=== PATIENT | female | born 1965 | race Caucasian/White ===

== ENCOUNTER → 2016-07-22 | Outpatient (CLI) | payer BC ==
--- NOTE | 2016-07-25 08:10 | MM ---
Reason for exam: screening (asymptomatic). Last mammogram was performed 1 year and 8 months ago. History: Patient is postmenopausal. Benign MG stereo VAD BX LT of the left breast, December 09, 2014. Physical Findings: A clinical breast exam by your physician is recommended on an annual basis and results should be correlated with mammographic findings. MG Screening Mammo w CAD Bilateral CC and MLO view(s) were taken. Prior study comparison: November 28, 2014, left breast MG 3d work up w/cad LT. October 03, 2014, bilateral MG screening mammo w CAD. There are scattered fibroglandular densities. Finding: There is a stable, linear, equal density (isodense) mass in the upper outer quadrant of the left breast. Previous mammotome biopsy in the left breast. There is a chronic nodularity in the right breast. No significant changes in finding since November 28, 2014 and October 03, 2014. ASSESSMENT: Benign, BI-RAD 2 RECOMMENDATION: Routine screening mammogram of both breasts in 1 year.
== END | disposition home or self-care (01) ==
LOC: RADMAMWWP 15:06
PROVIDERS: ATTEND Internal Medicine
DX: Z12.31 Encounter for screening mammogram for malignant neoplasm of breast (principal)

== ENCOUNTER 2017-12-07 10:53 | Emergency (ER) | payer OTHER ==
[2017-12-07 11:03] VITALS: TEMP 97.8
[2017-12-07 11:59] LABS: Basophils # (A) 0.1 k/uL (0-0.2); Basophils % (A) 1 %; Eosinophils # (A) 0.1 k/uL (0-0.7); Eosinophils % (A) 1 %; HCT 43.6 % (34.0-46.0); HGB 14.4 gm/dL (11.4-16.0); Lymphocytes # (A) 2.4 k/uL (1.0-4.8); Lymphocytes % (A) 36 %; MCH 30.1 pg (25.0-35.0); MCV 91.1 fL (80.0-100.0); Mean Platelet Volume 6.7; Monocytes # (A) 0.4 k/uL (0-1.0); Monocytes % (A) 6 %; Neutrophils # (A) 3.5 k/uL (1.3-7.7); Neutrophils % (A) 53 %; Platelet Count 264 k/uL (150-450); RBC 4.78 m/uL (3.80-5.40); RDW 12.7 % (11.5-15.5); WBC 6.6 k/uL (3.8-10.6)
--- NOTE | 2017-12-07 12:00 | XR ---
EXAMINATION TYPE: XR chest 2V DATE OF EXAM: 12/07/2017 COMPARISON: NONE HISTORY: Chest pain TECHNIQUE: Frontal and lateral views of the chest are obtained. FINDINGS: There is no focal air space opacity. No evidence for pneumothorax. No pleural effusion. The cardiac silhouette size is within normal limits. The osseous structures are grossly intact. IMPRESSION: 1. No acute cardiopulmonary process.
[2017-12-07 12:09] LABS: INR 0.9 (<1.2); Prothrombin Time 9.4 sec (9.0-12.0)
[2017-12-07 12:20] LABS: ALT 39 U/L (9-52); AST 40 U/L (14-36); Albumin 4.1 g/dL (3.5-5.0); Alkaline Phosphatase 93 U/L (38-126); Anion Gap 6 mmol/L; Blood Urea Nitrogen 16 mg/dL (7-17); Calcium 9.7 mg/dL (8.4-10.2); Carbon Dioxide 25 mmol/L (22-30); Chloride 110 mmol/L (98-107); Glucose 91 mg/dL (74-99); Lipase 166 U/L (23-300); Magnesium 1.9 mg/dL (1.6-2.3); Potassium 4.7 mmol/L (3.5-5.1); Sodium 141 mmol/L (137-145); Total Bilirubin 0.4 mg/dL (0.2-1.3); Total Protein 7.2 g/dL (6.3-8.2)
[2017-12-07 12:22] LABS: Creatine Kinase 61 U/L (30-135)
[2017-12-07 12:34] LABS: Creatine Kinase MB 0.7 ng/mL (0.0-2.4); Troponin I <0.012 ng/mL (0.000-0.034)
--- NOTE | 2017-12-07 13:20 | CT ---
EXAMINATION TYPE: CT angio chest DATE OF EXAM: 12/07/2017 COMPARISON: None HISTORY: Indigestion, chest pressure CT DLP: 268 mGycm CONTRAST: CT chest with contrast and 3D reconstruction with MIP imaging is performed with IV Contrast, patient injected with 100 mL of Isovue 370. Contrast-enhanced CT of the chest was performed through the course of the pulmonary arteries with ivan g and mediastinal window settings submitted. 3D reconstruction with MIP imaging was also performed. PULMONARY ARTERIES: The pulmonary arteries and their major tributaries are patent. I do not see maicol dence for sizable filling defect to suggest pulmonary embolic process. LUNGS: The lungs are clear and free of infiltrate. No evidence for atelectasis. 4 mm pleural based pu lmonary nodule superior segment left lower lobe image 71 of 144. Six-month follow-up is recommended. No pleural effusion. MEDIASTINUM: Thoracic aorta is of normal caliber,however, evaluation is limited given timing of the contrast bolus. If there is concern for thoracic aortic pathology consider SEVEN. Correlate clinicall y . The heart is not enlarged. No evidence for mediastinal mass. No mediastinal lymph nodes greater than 1cm. HILAR STRUCTURES: No evidence for mass. No hilar lymph nodes greater than 1 cm. UPPER ABDOMEN: No significant abnormality is seen. IMPRESSION: 1. No evidence for Pulmonary embolism at this time. 2. 4 mm pleural based pulmonary nodule superior segment left lower lobe image 71 of 144. Six-month f ollow-up is recommended. No pleural effusion.
--- NOTE | 2017-12-07 13:31 | ED ---
Chest Pain HPI - General Chief Complaint: Chest Pain Stated Complaint: r/o heart attack, sent by dr bai Time Seen by Provider: 12/07/17 11:32 Source: patient, RN notes reviewed, old records reviewed Mode of arrival: ambulatory Limitations: no limitations - History of Present Illness Initial Comments: This is a 52-year-old female the ER for evaluation of chest pain. A she has had occasional chest pain for about a week with no resolution in symptoms. Patient states pain is burning in nature with no shortness of breath or radiation. No recent fever cough or congestion recent travel history no sick contacts. Patient denies history of high blood pressure normal cholesterol no diabetes no history of smoking or family history of heart disease MD Complaint: chest pain -: week(s) Onset: during rest, during exertion, after eating Pain Location: left chest Severity: mild Severity scale (1-10): 3 Quality: aching Consistency: intermittent Improves With: nothing Worsens With: nothing Treatments Prior to Arrival: none - Related Data Home Medications Medication Instructions Recorded Confirmed ALPRAZolam [Xanax] 0.25 mg PO DAILY PRN 12/07/17 12/07/17 Omeprazole 20 mg PO BID PRN 12/07/17 12/07/17 Allergies Allergy/AdvReac Type Severity Reaction Status Date / Time Sulfa (Sulfonamide Allergy Unknown Verified 12/07/17 11:32 Antibiotics) Review of Systems ROS Statement: Those systems with pertinent positive or pertinent negative responses have been documented in the HPI. ROS Other: All systems not noted in ROS Statement are negative. EKG Findings - EKG Comments: EKG Findings:: EKG shows sinus rhythm rate of 64, VT 160, QRS 90, QTc 427 Past Medical History Past Medical History: No Reported History History of Any Multi-Drug Resistant Organisms: None Reported Past Surgical History: Tonsillectomy Past Psychological History: Anxiety Smoking Status: Never smoker Past Alcohol Use History: None Reported Past Drug Use History: None Reported General Exam Limitations: no limitations General appearance: alert, in no apparent distress Head exam: Present: atraumatic, normocephalic, normal inspection Eye exam: Present: normal appearance, PERRL, EOMI. Absent: scleral icterus, conjunctival injection, periorbital swelling ENT exam: Present: normal exam, mucous membranes moist Neck exam: Present: normal inspection. Absent: tenderness, meningismus, lymphadenopathy Respiratory exam: Present: normal lung sounds bilaterally. Absent: respiratory distress, wheezes, rales, rhonchi, stridor Cardiovascular Exam: Present: regular rate, normal rhythm, normal heart sounds. Absent: systolic murmur, diastolic murmur, rubs, gallop, clicks GI/Abdominal exam: Present: soft, normal bowel sounds. Absent: distended, tenderness, guarding, rebound, rigid Extremities exam: Present: normal inspection, full ROM, normal capillary refill. Absent: tenderness, pedal edema, joint swelling, calf tenderness Back exam: Present: normal inspection Neurological exam: Present: alert, oriented X3, CN II-XII intact Psychiatric exam: Present: normal affect, normal mood Skin exam: Present: warm, dry, intact, normal color. Absent: rash Course Vital Signs 12/07/17 12/07/17 12/07/17 11:01 11:30 12:00 Temperature 97.8 F Pulse Rate 63 78 Respiratory 16 16 Rate Blood Pressure 129/80 121/81 121/81 O2 Sat by Pulse 100 Oximetry 12/07/17 12/07/17 13:00 14:00 Temperature Pulse Rate 70 Respiratory 14 Rate Blood Pressure 115/75 142/85 O2 Sat by Pulse 96 Oximetry - Reevaluation(s) Reevaluation #1: Patient is without chest pain Studies Chest x-ray CTA chest negative for acute disease Chest Pain MDM - MDM 52 female the ER for evaluation. Patient resents today for evaluation of chest pain no recent history of heart disease CT chest x-ray, EKG and troponin are negative Disposition Clinical Impression: Chest pain Disposition: HOME SELF-CARE Condition: Good Is patient prescribed a controlled substance at d/c from ED?: No Referrals: Rema Bai MD [Primary Care Provider] - 1-2 days
[2017-12-07 14:18] VITALS: BP 142/85; PULSE 70; RESP 14
== END 2017-12-07 14:20 | disposition home or self-care (01) ==
LOC: EC 10:53
DX: R07.9 Chest pain, unspecified (principal); Z88.2 Allergy status to sulfonamides
CPT/HCPCS: 36415; 93005; 80053; 82550; 82553; 83690; 83735; 84484; 85025; 85610; 85730; 71046; 71275; 99285; Q9967

== ENCOUNTER 2019-12-29 22:13 | Inpatient (IN) | payer OTHER ==
[2019-12-29] MEDS ORDERED: FAMOTIDINE 20 MG/2 ML VIAL IV STA (22:43)
[2019-12-29] MEDS ORDERED: ONDANSETRON 4 MG/2 ML VIAL IVP STA (22:43)
[2019-12-29] MEDS ORDERED: MORPHINE SULFATE 4 MG/ML SYRINGE IVP STA (22:43)
[2019-12-29] MEDS ORDERED: SODIUM CHLORIDE 0.9% 500 ML 500 ML IV STA (22:43)
--- NOTE | 2019-12-29 23:30 | XR ---
EXAMINATION TYPE: XR chest 2V DATE OF EXAM: 12/29/2019 COMPARISON: 12/07/2017 HISTORY: Chest pain TECHNIQUE: FINDINGS: There is no heart failure nor confluent pneumonic infiltrate. Costophrenic angles are clear . The bony thorax is intact. Heart size is normal. IMPRESSION: Normal chest. No change.
--- NOTE | 2019-12-29 23:34 | ED ---
General Adult HPI - General Chief complaint: Chest Pain Stated complaint: ABD pain Time Seen by Provider: 12/29/19 22:33 Source: patient Mode of arrival: wheelchair Limitations: no limitations - History of Present Illness Initial comments: 54 year-old female patient presents to the emergency department today for evaluation of midepigastric pain radiating through to the back. Patient states that pain started yesterday and has been occurring intermittently since. Patient states that today the pain has been more constant and she is unable to get it to go away. She states she initially had nausea and one episode of vomiting. Denies any constipation or diarrhea. Denies any shortness of breath or chest pain. He denies any previous abdominal surgeries. Denies a history of cardiac disease, hypertension, hyperlipidemia, or diabetes. Denies any family history of coronary artery disease. Patient states just upon arrival she started to have some sweats but believe this is from the pain. She denies any swelling or pain to her lower extremities. Patient denies any recent rash, fever, chills, cough, abdominal pain, nausea, vomiting, diarrhea, constipation, back pain, numbness, tingling, dizziness, weakness, hematuria, dysuria, urinary urgency, urinary frequency, headache, visual changes, or any other complaints. - Related Data Home Medications Medication Instructions Recorded Confirmed ALPRAZolam [Xanax] 0.25 mg PO DAILY PRN 12/07/17 12/07/17 Omeprazole 20 mg PO BID PRN 12/07/17 12/07/17 Allergies Allergy/AdvReac Type Severity Reaction Status Date / Time Sulfa (Sulfonamide Allergy Unknown Verified 12/29/19 22:32 Antibiotics) Review of Systems ROS Statement: Those systems with pertinent positive or pertinent negative responses have been documented in the HPI. ROS Other: All systems not noted in ROS Statement are negative. Past Medical History Past Medical History: No Reported History History of Any Multi-Drug Resistant Organisms: None Reported Past Surgical History: Tonsillectomy Past Psychological History: Anxiety Smoking Status: Never smoker Past Alcohol Use History: None Reported Past Drug Use History: None Reported General Exam Limitations: no limitations General appearance: alert, in no apparent distress, other (This is a well- developed, well-nourished adult female patient in no acute distress. Vital signs upon presentation are temperature 98.0F, pulse 91, respirations 17, blood pressure 124/86, pulse ox 100% on room air.) Eye exam: Present: normal appearance, PERRL, EOMI. Absent: scleral icterus, conjunctival injection, periorbital swelling ENT exam: Present: normal exam, normal oropharynx, mucous membranes moist Respiratory exam: Present: normal lung sounds bilaterally. Absent: respiratory distress, wheezes, rales, rhonchi, stridor Cardiovascular Exam: Present: regular rate, normal rhythm, normal heart sounds. Absent: systolic murmur, diastolic murmur, rubs, gallop, clicks GI/Abdominal exam: Present: soft, tenderness (midepigastric), normal bowel sounds. Absent: distended, guarding, rebound, rigid Neurological exam: Present: alert, oriented X3, CN II-XII intact Psychiatric exam: Present: normal affect, normal mood Skin exam: Present: warm, dry, intact, normal color. Absent: rash Course Vital Signs 12/29/19 12/30/19 22:30 00:05 Temperature 98 F 98.4 F Pulse Rate 91 76 Respiratory 17 16 Rate Blood Pressure 124/86 110/77 O2 Sat by Pulse 100 99 Oximetry EKG Findings - EKG Comments: EKG Findings:: EKG obtained at 2253 shows normal sinus rhythm with a ventricular rate of 83, P return of a 156, QRS duration 86, QT 374, QTC 439. No evidence of ST elevation or depression. Medical Decision Making - Medical Decision Making 54 old female patient presents to the emergency department today for evaluation of midepigastric abdominal pain radiating to her back. Physical examination did reveal mild midepigastric tenderness. Mild right upper quadrant tenderness. Labs reviewed and did reveal white blood cell count at 12.3 with neutrophil count 8.5. BUN was 21, AST 434, a LT 145, alk phos 155. Lipase is greater than 20,000. Ultrasound of the right upper quadrant was obtained and did show evidence for dilated common bile duct no obvious stone, radiologist recommends ERCP or MRCP. I did discuss findings and results with the patient. We will give IV fluids*antibiotics and consult GI specialty. She is agreeable to this plan. - Lab Data Result diagrams: 12/29/19 22:50 12/29/19 22:50 Lab Results 12/29/19 12/29/19 12/29/19 Range/Units 22:50 22:50 22:50 WBC 12.3 H (3.8-10.6) k/uL RBC 5.01 (3.80-5.40) m/uL Hgb 15.1 (11.4-16.0) gm/dL Hct 44.6 (34.0-46.0) % MCV 89.1 (80.0-100.0) fL MCH 30.1 (25.0-35.0) pg MCHC 33.8 (31.0-37.0) g/dL RDW 12.4 (11.5-15.5) % Plt Count 289 (150-450) k/uL MPV 7.1 Neutrophils % 69 % Lymphocytes % 21 % Monocytes % 6 % Eosinophils % 1 % Basophils % 1 % Neutrophils # 8.5 H (1.3-7.7) k/uL Lymphocytes # 2.6 (1.0-4.8) k/uL Monocytes # 0.8 (0-1.0) k/uL Eosinophils # 0.2 (0-0.7) k/uL Basophils # 0.1 (0-0.2) k/uL PT 9.6 (9.0-12.0) sec INR 0.9 (<1.2) APTT 24.0 (22.0-30.0) sec Sodium 139 (137-145) mmol/L Potassium 4.1 (3.5-5.1) mmol/L Chloride 109 H (98-107) mmol/L Carbon Dioxide 22 (22-30) mmol/L Anion Gap 8 mmol/L BUN 21 H (7-17) mg/dL Creatinine 0.76 (0.52-1.04) mg/dL Est GFR (CKD-EPI)AfAm >90 (>60 ml/min/1.73 sqM) Est GFR (CKD-EPI)NonAf 89 (>60 ml/min/1.73 sqM) Glucose 121 H (74-99) mg/dL Calcium 9.6 (8.4-10.2) mg/dL Magnesium 1.9 (1.6-2.3) mg/dL Total Bilirubin 1.1 (0.2-1.3) mg/dL AST 434 H (14-36) U/L ALT 145 H (4-34) U/L Alkaline Phosphatase 155 H (38-126) U/L Troponin I (0.000-0.034) ng/mL Total Protein 7.6 (6.3-8.2) g/dL Albumin 4.5 (3.5-5.0) g/dL Lipase >54700 H (23-300) U/L 12/29/19 Range/Units 22:50 WBC (3.8-10.6) k/uL RBC (3.80-5.40) m/uL Hgb (11.4-16.0) gm/dL Hct (34.0-46.0) % MCV (80.0-100.0) fL MCH (25.0-35.0) pg MCHC (31.0-37.0) g/dL RDW (11.5-15.5) % Plt Count (150-450) k/uL MPV Neutrophils % % Lymphocytes % % Monocytes % % Eosinophils % % Basophils % % Neutrophils # (1.3-7.7) k/uL Lymphocytes # (1.0-4.8) k/uL Monocytes # (0-1.0) k/uL Eosinophils # (0-0.7) k/uL Basophils # (0-0.2) k/uL PT (9.0-12.0) sec INR (<1.2) APTT (22.0-30.0) sec Sodium (137-145) mmol/L Potassium (3.5-5.1) mmol/L Chloride (98-107) mmol/L Carbon Dioxide (22-30) mmol/L Anion Gap mmol/L BUN (7-17) mg/dL Creatinine (0.52-1.04) mg/dL Est GFR (CKD-EPI)AfAm (>60 ml/min/1.73 sqM) Est GFR (CKD-EPI)NonAf (>60 ml/min/1.73 sqM) Glucose (74-99) mg/dL Calcium (8.4-10.2) mg/dL Magnesium (1.6-2.3) mg/dL Total Bilirubin (0.2-1.3) mg/dL AST (14-36) U/L ALT (4-34) U/L Alkaline Phosphatase (38-126) U/L Troponin I <0.012 (0.000-0.034) ng/mL Total Protein (6.3-8.2) g/dL Albumin (3.5-5.0) g/dL Lipase (23-300) U/L - Radiology Data Radiology results: report reviewed, image reviewed Two-view x-ray of the chest was obtained. Report was reviewed in its entirety. Impression by Dr. Stein shows normal chest. No change. Ultrasound of the right upper quadrant abdomen was obtained. Report was reviewed in its entirety. Impression by Dr. Oropeza shows CBD is dilated to 1 cm. No definite stone is identified. Recommended ERCP/MRCP to rule out obstructive process/choledocholithiasis. Disposition Clinical Impression: Choledocholithiasis Disposition: ADMITTED IP TO THIS [facility] Condition: Serious Decision to Admit Reason: Admit from EC Decision Date: 12/30/19 Decision Time: 02:12
[2019-12-29 23:35] LABS: Basophils # (A) 0.1 k/uL (0-0.2); Basophils % (A) 1 %; Eosinophils # (A) 0.2 k/uL (0-0.7); Eosinophils % (A) 1 %; HCT 44.6 % (34.0-46.0); HGB 15.1 gm/dL (11.4-16.0); Lymphocytes # (A) 2.6 k/uL (1.0-4.8); Lymphocytes % (A) 21 %; MCH 30.1 pg (25.0-35.0); MCHC 33.8 g/dL (31.0-37.0); MCV 89.1 fL (80.0-100.0); Mean Platelet Volume 7.1; Monocytes # (A) 0.8 k/uL (0-1.0); Monocytes % (A) 6 %; Neutrophils # (A) 8.5 k/uL (1.3-7.7); Neutrophils % (A) 69 %; Platelet Count 289 k/uL (150-450); RBC 5.01 m/uL (3.80-5.40); RDW 12.4 % (11.5-15.5); WBC 12.3 k/uL (3.8-10.6)
[2019-12-29 23:51] LABS: INR 0.9 (<1.2); Prothrombin Time 9.6 sec (9.0-12.0)
[2019-12-30 00:06] LABS: ALT 145 U/L (4-34); AST 434 U/L (14-36); African American GFR (CKD) >90 (>60 ml/min/1.73 sqM); Albumin 4.5 g/dL (3.5-5.0); Alkaline Phosphatase 155 U/L (38-126); Anion Gap 8 mmol/L; Blood Urea Nitrogen 21 mg/dL (7-17); Calcium 9.6 mg/dL (8.4-10.2); Carbon Dioxide 22 mmol/L (22-30); Chloride 109 mmol/L (98-107); Glucose 121 mg/dL (74-99); Magnesium 1.9 mg/dL (1.6-2.3); Non-African American GFR(CKD) 89 (>60 ml/min/1.73 sqM); Potassium 4.1 mmol/L (3.5-5.1); Sodium 139 mmol/L (137-145); Total Bilirubin 1.1 mg/dL (0.2-1.3); Total Protein 7.6 g/dL (6.3-8.2)
[2019-12-30] MEDS ORDERED: HYDROmorphone 0.5 MG/0.5 ML SYRINGE IVP STA (00:27)
[2019-12-30 00:49] LABS: Lipase >20000 U/L (23-300)
--- NOTE | 2019-12-30 01:08 | US ---
EXAM: US Abdomen Limited, Right Upper Quadrant CLINICAL HISTORY: ITS.REASON US Reason: Midepigastric pain TECHNIQUE: Real-time ultrasound of the right upper quadrant with image documentation. COMPARISON: No relevant prior studies available. FINDINGS: Liver: Unremarkable. No mass. No intrahepatic bile duct dilation. Gallbladder: No gallstones. No pericholecystic fluid. No gallbladder wall thickening. Negative Chavez's sign. Common bile duct: Dilated to 1 cm. Pancreas: Partially obscured. Right kidney: No stones. No solid mass. No hydronephrosis. IMPRESSION: CBD is dilated to 1 cm. No definite stone is identified. Recommend ERCP/MRCP to rule out obstructive process/choledocholithiasis.
[2019-12-30] MEDS ORDERED: SODIUM CHLORIDE 0.9% 1,000 ML IV ONE (01:33)
[2019-12-30] MEDS ORDERED: SODIUM CHLORIDE 0.9% 500 ML 500 ML IV ONE (01:33)
[2019-12-30] MEDS ORDERED: METOCLOPRAMIDE 5 MG/ML 2 ML VIAL IVP STA (01:42)
[2019-12-30] MEDS ORDERED: diphenhydrAMINE 50 MG/ML 1 ML VIAL IVP STA (01:42)
[2019-12-30] MEDS ORDERED: NALOXONE 0.4 MG/ML 1 ML VIAL IV PRN (01:59)
[2019-12-30] MEDS ORDERED: ONDANSETRON 4 MG/2 ML VIAL IVP PRN (01:59)
[2019-12-30] MEDS ORDERED: HYDROmorphone 0.5 MG/0.5 ML SYRINGE IVP PRN (01:59)
[2019-12-30] MEDS ORDERED: MORPHINE SULFATE 4 MG/ML SYRINGE IV PRN (01:59)
[2019-12-30] MEDS ORDERED: PIPERACILLIN-TAZOBACTAM 3.375 GM in SODIUM CHLORIDE 0.9% 100 ML IVPB SCH (02:00)
[2019-12-30] MEDS ORDERED: PIPERACILLIN-TAZOBACTAM 3.375 GM in SODIUM CHLORIDE 0.9% 100 ML IVPB STA (02:12)
[2019-12-30] MEDS: SODIUM CHLORIDE 0.9% 1,000 ML IV SCH ×4 (02:34→21:18)
[2019-12-30] MEDS: PANTOPRAZOLE 40 MG/10 ML VIAL IV SCH (08:42)
[2019-12-30] MEDS ORDERED: KETOROLAC 15 MG/ML 1 ML VIAL IVP PRN (09:26)
--- NOTE | 2019-12-30 15:01 | P.HPIM ---
History of Present Illness 54-year-old pleasant female came in with the complaints of midepigastric pain severe and radiating to the back. Patient was having nausea vomiting as well. Although symptoms resolved at this time. Patient is found to have gallstone pancreatitis with dilated common bile duct to about 1 cm without any obstructive choledocholithiasis. In the past patient had the pain and pressure in the left and right upper quadrants after eating food. Review of Systems REVIEW OF SYSTEMS: CONSTITUTIONAL: No fever, no malaise, no fatigue. HEENT: No recent visual problems or hearing problems. Denied any sore throat. CARDIOVASCULAR: No chest pain, orthopnea, PND, no palpitations, no syncope. PULMONARY: No shortness of breath, no cough, no hemoptysis. GASTROINTESTINAL: As mentioned in HPI NEUROLOGICAL: No headaches, no weakness, no numbness. HEMATOLOGICAL: Denies any bleeding or petechiae. GENITOURINARY: Denies any burning micturition, frequency, or urgency. MUSCULOSKELETAL/RHEUMATOLOGICAL: Denies any joint pain, swelling, or any muscle pain. ENDOCRINE: Denies any polyuria or polydipsia. The rest of the 14-point review of systems is negative. Past Medical History Past Medical History: No Reported History, GERD/Reflux History of Any Multi-Drug Resistant Organisms: None Reported Past Surgical History: Tonsillectomy Additional Past Surgical History / Comment(s): lasixs surgery on eye 2014 Past Anesthesia/Blood Transfusion Reactions: No Reported Reaction Past Psychological History: Anxiety Smoking Status: Never smoker Past Alcohol Use History: None Reported Past Drug Use History: None Reported - Past Family History Father Family Medical History: COPD, Diabetes Mellitus Mother Family Medical History: COPD Additional Family Medical History / Comment(s): pulmonary fibrosis Medications and Allergies Home Medications Medication Instructions Recorded Confirmed Type ALPRAZolam [Xanax] 0.25 mg PO BID PRN 12/07/17 12/30/19 History Omeprazole 20 mg PO BID PRN 12/07/17 12/30/19 History Cholecalciferol [Vitamin D3 (25 2,000 unit PO DAILY 12/30/19 12/30/19 History Mcg = 1000 Iu)] Mv-Min/Folic/Vit K/Lut/Onwi901 2 tab PO DAILY 12/30/19 12/30/19 History [Alive Women's 50 Plus Tablet] Allergies Allergy/AdvReac Type Severity Reaction Status Date / Time Sulfa (Sulfonamide Allergy Unknown Verified 12/30/19 07:59 Antibiotics) Physical Exam Vitals: Vital Signs Temp Pulse Pulse Resp BP BP Pulse Ox 12/30/19 11:26 97.9 F 100 16 88/58 100 12/30/19 04:48 98.0 F 73 18 101/63 97 12/30/19 03:09 98.4 F 78 18 95/58 97 12/30/19 02:00 98.1 F 84 16 128/85 97 12/30/19 01:00 98.4 F 76 16 119/85 98 12/30/19 00:05 98.4 F 76 16 110/77 99 12/29/19 22:30 98 F 91 17 124/86 100 Intake and Output 12/29/19 12/30/19 12/30/19 22:59 06:59 14:59 Other: # Voids 1 3 Weight 81.647 kg 81.647 kg PHYSICAL EXAMINATION: GENERAL: The patient is alert and oriented x3, not in any acute distress. Well developed, well nourished. HEENT: Pupils are round and equally reacting to light. EOMI. No scleral icterus. No conjunctival pallor. Normocephalic, atraumatic. No pharyngeal erythema. No thyromegaly. CARDIOVASCULAR: S1 and S2 present. No murmurs, rubs, or gallops. PULMONARY: Chest is clear to auscultation, no wheezing or crackles. ABDOMEN: Soft, nontender, nondistended, normoactive bowel sounds. No palpable organomegaly. MUSCULOSKELETAL: No joint swelling or deformity. EXTREMITIES: No cyanosis, clubbing, or pedal edema. NEUROLOGICAL: Gross neurological examination did not reveal any focal deficits. SKIN: No rashes. Results CBC & Chem 7: 12/29/19 22:50 12/29/19 22:50 Labs: Abnormal Lab Results - Last 24 Hours (Table) 12/29/19 12/29/19 Range/Units 22:50 22:50 WBC 12.3 H (3.8-10.6) k/uL Neutrophils # 8.5 H (1.3-7.7) k/uL Chloride 109 H (98-107) mmol/L BUN 21 H (7-17) mg/dL Glucose 121 H (74-99) mg/dL AST 434 H (14-36) U/L ALT 145 H (4-34) U/L Alkaline Phosphatase 155 H (38-126) U/L Lipase >43342 H (23-300) U/L Thrombosis Risk Factor Assmnt - Choose All That Apply Any of the Below Risk Factors Present?: Yes Each Factor Represents 1 point: Age 41-60 years Other Risk Factors: No Other congenital or acquired thrombophilia - If yes, enter type in comment: No Thrombosis Risk Factor Assessment Total Risk Factor Score: 1 Thrombosis Risk Factor Assessment Level: Low Risk Assessment and Plan Plan: -Gallstone pancreatitis: Patient will be nothing by mouth patient's symptoms improved probably can be restarted on clear liquid diet but I'll leave the decision to gastroneurology will evaluate the patient. Continue with present pain medications will also add Toradol for pain along with GI prophylaxis. -Choledocholithiasis and cholelithiasis: General surgery was consulted. Patient may need an MRCP or an ERCP although there is no evidence of obstructed stone in the common bile duct at least on the ultrasound. -Elevated liver enzymes. Assessment #2. Lipid liver enzymes again tomorrow -Leukocytosis secondary to pancreatitis there is no evidence of ascending cholangitis at this time, antibiotics will be discontinued. If gastrin probably police patient will need antibiotics and patient will be resumed on antibiotics at that time. -DVT prophylaxis with Lovenox
--- NOTE | 2019-12-30 16:10 | MR ---
EXAMINATION TYPE: MR MRCP DATE OF EXAM: 12/30/2019 COMPARISON: Ultrasound 12/30/2019 HISTORY: Abdominal pain and abnormal ultrasound Standard multiplanar, multisequence MRI departmental protocol Multiplanar, multisequence images of the upper abdomen and biliary tree were acquired. Diffusion weig hted imaging was performed. FINDINGS: I do not see evidence for cholelithiasis. No gallbladder wall thickening or pericholecystic fluid. No gallbladder mass is identified. Common bile duct measures 8 mm and demonstrates luminal narrowing at the sphincter of Oddi. No evidence for mass or choledocholithiasis. Pancreatic duct is of normal caliber. No pancreatic lesions are seen. The liver is homogeneous and free of mass lesion. No intrahepatic biliary ductal dilatation seen. Adrenal glands, visualized portions of the kidneys and spleen are within normal limits. IMPRESSION: 1. Mild dilatation of the common bile duct at 8 mm with narrowing at the sphincter of Oddi. No eviden ce for choledocholithiasis or mass.
--- NOTE | 2019-12-30 17:10 | CONS ---
CONSULTATION DATE OF DICTATION: REASON FOR CONSULTATION: Acute gallstone pancreatitis. HISTORY OF PRESENT ILLNESS: The patient is a 54-year-old pleasant white female admitted to the hospital with acute onset of severe epigastric pain that started at 3 pm yesterday. The pain continued to progressively get worse associated with nausea, vomiting, came into the emergency room and was noted to have elevated LFTs as well as lipase, more than 20,000, consistent with acute pancreatitis. She never had these symptoms in the past. She is feeling much better this morning. She had an ultrasound of the gallbladder done in the emergency room that showed evidence of no gallstones but dilated CBD measuring 1 cm in size. No pericholecystic fluid noted. The patient is feeling much better this morning abdomen nausea vomiting has completely resolved. PAST MEDICAL HISTORY: Significant for gastroesophageal reflux disease anxiety. MEDICATIONS: At home, Prilosec, Xanax, vitamin D3. ALLERGIES: SULFA. PAST SURGICAL HISTORY: Tonsillectomy. SOCIAL HISTORY: No smoking or alcohol use. FAMILY HISTORY: Unremarkable. REVIEW OF SYSTEMS: CARDIOPULMONARY: No chest pain, no shortness of breath. : No dysuria or hematuria. MUSCULOSKELETAL: Unremarkable. SKIN: Unremarkable. ENDOCRINE: Unremarkable. PSYCHIATRIC: Unremarkable. NEUROLOGY: Unremarkable. ENT/VISION: Unremarkable. CONSTITUTIONAL: No recent weight loss. No fever, chills, night sweats. HEMATOLOGY: Unremarkable. ONCOLOGY: Unremarkable. PHYSICAL EXAMINATION: Appears comfortable. VITAL SIGNS: Stable. Blood pressure 88/58, pulse rate 100, temperature 97.8. HEENT: Examination unremarkable, conjunctivae are pink, sclerae nonicteric, oral cavity no lesions. NECK: No JVD or lymph node enlargement. CHEST: Clear to auscultation. HEART: Regular rate and rhythm. ABDOMEN: Soft, bowel sounds are positive, no organomegaly. EXTREMITIES: No pedal edema. SKIN: No rashes. NEUROLOGIC: Alert and oriented x3. No focal deficits. LABS: At the time of admission to the hospital yesterday WBC 12.3, hemoglobin 15, platelets normal. Basic metabolic panel is within normal limits. AST and ALT at 434 and 145 respectively, alkaline phosphatase 155. T bilirubin normal. Lipase is more than 20,000. Ultrasound of the abdomen showed dilated CBD but no gallstones and no pericholecystic fluid. IMPRESSION: This is a lady who presented with the onset to the hospital with acute onset of severe left epigastric pain associated with nausea, vomiting that started yesterday evening and noted to have elevated lipase consistent with acute pancreatitis. She is also noted to have elevated LFTs consistent with acute biliary pancreatitis. Ultrasound of the gallbladder did not show any evidence of gallstones but did show dilated CBD at 1 cm in size. Patient is clinically improving, overall feeling much better. Abdominal pain has resolved. RECOMMENDATION: 1. Will obtain MRCP to rule out CBD stones. 2. Repeat labs in the morning. 3. Start her on clear liquid diet. 4. Will follow with you closely. 5. Await surgical evaluation. Thank you for this consultation. MMODL / IJN: [id number] /
[2019-12-31] MEDS: SODIUM CHLORIDE 0.9% 1,000 ML IV SCH ×4 (02:30→23:34)
[2019-12-31 07:42] LABS: Basophils % (A) 0 %; Eosinophils # (A) 0.3 k/uL (0-0.7); Eosinophils % (A) 3 %; HCT 37.5 % (34.0-46.0); HGB 12.3 gm/dL (11.4-16.0); Lymphocytes % (A) 19 %; MCH 29.8 pg (25.0-35.0); MCHC 32.8 g/dL (31.0-37.0); MCV 90.9 fL (80.0-100.0); Mean Platelet Volume 7.2; Monocytes # (A) 0.7 k/uL (0-1.0); Monocytes % (A) 7 %; Neutrophils # (A) 7.2 k/uL (1.3-7.7); Neutrophils % (A) 70 %; Platelet Count 217 k/uL (150-450); RBC 4.13 m/uL (3.80-5.40); WBC 10.4 k/uL (3.8-10.6)
[2019-12-31] MEDS: PANTOPRAZOLE 40 MG/10 ML VIAL IV SCH (07:47)
[2019-12-31] MEDS: ENOXAPARIN 40 MG/0.4 ML SYRINGE SQ SCH (07:48)
[2019-12-31 13:02] LABS: African American GFR (CKD) 95.5 (60.0-200.0); Albumin 3.6 g/dL (3.80-4.90); Albumin/Globulin Ratio 1.89 (1.60-3.17); BUN/Creat Ratio 13.75 Ratio (12.00-20.00); Calcium 8.5 mg/dL (8.7-10.3); Globulin 1.9 g/dL (1.6-3.3); Magnesium 1.6 mg/dL (1.5-2.4); Non-African American GFR(CKD) 82.4 (60.0-200.0); Potassium 3.3 mmol/L (3.5-5.5); Total Bilirubin 0.6 mg/dL (0.3-1.2); Total Protein 5.5 g/dL (6.2-8.2)
[2019-12-31] MEDS ORDERED: POTASSIUM CHLORIDE ER 20 MEQ TAB.ER PO STA (13:29)
[2019-12-31] MEDS: MAGNESIUM SULFATE-D5W PMX 1 GM in DEXTROSE/WATER 1 100ML.BAG IVPB SCH ×2 (13:53→17:04)
--- NOTE | 2019-12-31 13:55 | P.PN ---
Subjective Progress Note Date: 12/31/19 54-year-old pleasant female came in with the complaints of midepigastric pain severe and radiating to the back. Patient was having nausea vomiting as well. Although symptoms resolved at this time. Patient is found to have gallstone pancreatitis with dilated common bile duct to about 1 cm without any obstructive choledocholithiasis. In the past patient had the pain and pressure in the left and right upper quadrants after eating food. 12/31/2019 Patient is seen and evaluated and follow-up appears to be in no acute distress. Patient is tolerating a clear liquid diet with no reports of nausea or vomiting noted. Patient denies any epigastric pain at this time. Patient states she is urinating with no difficulties. Patient denies any bowel movements at this time but is passing gas. Patient underwent MRCP yesterday showing mild dilatation of the common bile duct at 8 mm with narrowing of the sphincter of Oddi with no evidence for choledocholelithiasis or mass. GI is following. Patient awaiting surgical consult at this time. She is requesting Dr. Fischer. Review of systems: Constitutional: No reports of fatigue, fever, or chills Cardiovascular: No reports of chest pain or palpitations Respiratory: No reports of shortness of breath or cough GI: No reports of nausea, vomiting, or diarrhea : No reports of dysuria or retention Neurovascular: No reports of weakness or numbness All medications have been reviewed Objective - Vital Signs Vital signs: Vital Signs Temp 98.8 F 12/31/19 08:18 Pulse 81 12/31/19 08:18 Resp 16 12/31/19 04:56 BP 106/64 12/31/19 08:18 Pulse Ox 97 12/31/19 08:18 Intake & Output 12/30/19 12/31/19 12/31/19 18:59 06:59 18:59 Intake Total 1650 Balance 1650 Intake: Intake, IV Titration 1000 Amount Sodium Chloride 0.9% 1, 1000 000 ml @ 200 mls/hr IV . Q5H [facility] Rx#:[id number] Oral 650 Other: # Voids 3 2 # Bowel Movements 0 - Exam GENERAL: The patient is alert and oriented x3, not in any acute distress. Well developed, well nourished. HEENT: Pupils are round and equally reacting to light. EOMI. No scleral icterus. No conjunctival pallor. Normocephalic, atraumatic. No pharyngeal erythema. No thyromegaly. CARDIOVASCULAR: S1 and S2 present. No murmurs, rubs, or gallops. PULMONARY: Chest is clear to auscultation, no wheezing or crackles. ABDOMEN: Soft, nontender, nondistended, normoactive bowel sounds. No palpable organomegaly. MUSCULOSKELETAL: No joint swelling or deformity. EXTREMITIES: No cyanosis, clubbing, or pedal edema. NEUROLOGICAL: Gross neurological examination did not reveal any focal deficits. SKIN: No rashes. - Labs CBC & Chem 7: 12/31/19 07:15 12/31/19 07:15 Assessment and Plan Assessment: -Gallstone pancreatitis, improved. Patient is tolerating clear liquid diet -Choledocholithiasis and cholelithiasis, ruled out: General surgery was consulted and pending at this time. Patient underwent MRCP as mentioned previously. GI is following. -Elevated liver enzymes secondary to above. Improved. -Leukocytosis secondary to pancreatitis there is no evidence of ascending cholangitis at this time, antibiotics will be discontinued. -DVT prophylaxis with Lovenox -GI prophylaxis: Pepcid Plan: Continue current medications and clear liquid diet at this time and will slowly advance to monitor for tolerance. GI is following. Patient underwent MRCP showing no evidence of choledocholithiasis or cholelithiasis with mild dilatation of the common bile duct at 8 mm with a narrowing at the sphincter of Oddi. Currently awaiting surgical consult and GI is following. Will repeat a.m. labs. Further recommendations to follow. Possible discharge in 24-48 hours.
--- NOTE | 2019-12-31 15:26 | P.GSCN ---
History of Present Illness Consult date: 12/31/19 History of present illness: This a 54-year-old female began having abdominal pain midepigastric with vomiting several days ago. She presented to the hospital with this is a chief complaint. She has no significant past surgical or medical history. She's never had pain like this before in the past. She does admit to some intermittent indigestion from time to time. She states her pain is significantly improved at this time. Patient denies any drug or alcohol use. The last time she had a sip of line was over month ago. She has no history of autoimmune disease. She is not currently on any medications. Past Medical History Past Medical History: No Reported History, GERD/Reflux History of Any Multi-Drug Resistant Organisms: None Reported Past Surgical History: Tonsillectomy Additional Past Surgical History / Comment(s): lasixs surgery on eye 2014 Past Anesthesia/Blood Transfusion Reactions: No Reported Reaction Past Psychological History: Anxiety Smoking Status: Never smoker Past Alcohol Use History: None Reported Past Drug Use History: None Reported - Past Family History Father Family Medical History: COPD, Diabetes Mellitus Mother Family Medical History: COPD Additional Family Medical History / Comment(s): pulmonary fibrosis Medications and Allergies Home Medications Medication Instructions Recorded Confirmed Type ALPRAZolam [Xanax] 0.25 mg PO BID PRN 12/07/17 12/30/19 History Omeprazole 20 mg PO BID PRN 12/07/17 12/30/19 History Cholecalciferol [Vitamin D3 (25 2,000 unit PO DAILY 12/30/19 12/30/19 History Mcg = 1000 Iu)] Mv-Min/Folic/Vit K/[id number]/[id number] 2 tab PO DAILY 12/30/19 12/30/19 History [Alive Women's 50 Plus Tablet] Allergies Allergy/AdvReac Type Severity Reaction Status Date / Time Sulfa (Sulfonamide Allergy Unknown Verified 12/30/19 07:59 Antibiotics) Surgical - Exam Osteopathic Statement: *. No significant issues noted on an osteopathic structural exam other than those noted in the History and Physical/Consult. Vital Signs Temp Pulse Resp BP Pulse Ox 98 F 91 17 124/86 100 12/29/19 22:30 12/29/19 22:30 12/29/19 22:30 12/29/19 22:30 11/15/20 22:30 - General well developed, well nourished, no distress - Eyes PERRL - Neck no masses, trachea midline - Respiratory normal expansion, normal respiratory effort - Cardiovascular Rhythm: regular - Abdomen Abdomen: soft, non tender - Psychiatric oriented to time, oriented to person, oriented to place Results - Labs 12/31/19 07:15 12/31/19 07:15 Abnormal Lab Results - Last 24 Hours (Table) 12/31/19 Range/Units 07:15 Potassium 3.3 L (3.5-5.5) mmol/L Chloride 112 H (96-109) mmol/L Carbon Dioxide 21.0 L (21.6-31.8) mmol/L Calcium 8.5 L (8.7-10.3) mg/dL AST 97 H (13-35) U/L ALT 129 H (8-44) U/L Total Protein 5.5 L (6.2-8.2) g/dL Albumin 3.60 L (3.80-4.90) g/dL Amylase 227 H (23-121) U/L Lipase 179 H (14-63) U/L Diabetes panel 12/30/19 12/31/19 Range/Units 13:59 07:15 Sodium 143 (135-145) mmol/L Potassium 3.3 L (3.5-5.5) mmol/L Chloride 112 H (96-109) mmol/L Carbon Dioxide 21.0 L (21.6-31.8) mmol/L BUN 11.0 (9.0-27.0) mg/dL Creatinine 0.8 (0.6-1.5) mg/dL Glucose 91 (70-110) mg/dL Calcium 8.5 L (8.7-10.3) mg/dL AST 97 H (13-35) U/L ALT 129 H (8-44) U/L Alkaline Phosphatase 124 (41-126) U/L Total Protein 5.5 L (6.2-8.2) g/dL Albumin 3.60 L (3.80-4.90) g/dL Triglycerides 64.0 (0.0-149.0) mg/dL Calcium panel 12/31/19 Range/Units 07:15 Calcium 8.5 L (8.7-10.3) mg/dL Albumin 3.60 L (3.80-4.90) g/dL Pituitary panel 12/31/19 Range/Units 07:15 Sodium 143 (135-145) mmol/L Potassium 3.3 L (3.5-5.5) mmol/L Chloride 112 H (96-109) mmol/L Carbon Dioxide 21.0 L (21.6-31.8) mmol/L BUN 11.0 (9.0-27.0) mg/dL Creatinine 0.8 (0.6-1.5) mg/dL Glucose 91 (70-110) mg/dL Calcium 8.5 L (8.7-10.3) mg/dL Adrenal panel 12/31/19 Range/Units 07:15 Sodium 143 (135-145) mmol/L Potassium 3.3 L (3.5-5.5) mmol/L Chloride 112 H (96-109) mmol/L Carbon Dioxide 21.0 L (21.6-31.8) mmol/L BUN 11.0 (9.0-27.0) mg/dL Creatinine 0.8 (0.6-1.5) mg/dL Glucose 91 (70-110) mg/dL Calcium 8.5 L (8.7-10.3) mg/dL Total Bilirubin 0.6 (0.3-1.2) mg/dL AST 97 H (13-35) U/L ALT 129 H (8-44) U/L Alkaline Phosphatase 124 (41-126) U/L Total Protein 5.5 L (6.2-8.2) g/dL Albumin 3.60 L (3.80-4.90) g/dL Assessment and Plan Assessment: Pancreatitis unknown etiology Plan: Patient's pancreatitis appears to be improved today. Neither ultrasound nor MRCP revealed cholelithiasis. MRCP did show luminal narrowing at the sphincter of lamont. Defer to GI for final recommendation regarding this. There is no pancreatic mass seen. No plans for any surgical intervention at this time as there is no confirmed cholelithiasis that can point towards this being a gallstone pancreatitis.
[2020-01-01] MEDS: SODIUM CHLORIDE 0.9% 1,000 ML IV SCH ×3 (02:41→08:46)
[2020-01-01 04:44] VITALS: BP 108/70; PULSE 71; RESP 16; TEMP 97.8
[2020-01-01] MEDS ORDERED: Potassium Replacement Protocol 1 EACH MISC MISCELLANE PRN ×2 (04:50→09:53)
[2020-01-01] MEDS: POTASSIUM CHLORIDE ER 20 MEQ TAB.ER PO SCH (06:24)
--- NOTE | 2020-01-01 07:30 | PN ---
PROGRESS NOTE DATE OF DICTATION: December 31, 2019 Patient is a 54-year-old pleasant white female admitted to hospital with acute pancreatitis. She presented with severe epigastric pain, nausea, vomiting. She is doing much better today. She was noted to have elevated LFTs as well as lipase. This morning, her labs are significantly improved. Lipase is down to 179. ALT and AST have improved to 97 and 129 with normal bilirubin and alkaline phosphatase. The patient had an MRCP done yesterday that showed no evidence of cholelithiasis, no gallbladder wall thickening. Common bile duct measured 8 mm and revealed a luminal narrowing at the sphincter of Oddi. No evidence of choledocholithiasis. Pancreatic duct was normal. No pancreatic duct lesions were noted. PHYSICAL EXAMINATION: She appears comfortable, no apparent distress. Vital signs are stable. Blood pressure is 112/86, pulse rate 82 per minute, temperature 97.8. HEENT EXAMINATION: Unremarkable. Conjunctivae pink. Sclerae anicteric. Oral cavity, no lesions. NECK: No JVD or lymph node enlargement. CHEST: Clear to auscultation. HEART: Regular rate and rhythm. ABDOMEN: Soft. Bowel sounds are positive. No organomegaly. EXTREMITIES: No pedal edema. NEURO: She is alert and oriented x3. No focal deficits. LABS: Labs from today: Lipase is 179, amylase 227. AST and ALT 97 and 129 respectively. T- bilirubin and alkaline phosphatase are normal. The potassium is 3.3. WBC 10.4, hemoglobin 12.3, platelets 217. IMPRESSION: Acute biliary pancreatitis, symptoms significantly improved. Lipase down to 179 from 20,000. Serum transaminases have also significantly improved. The patient is asymptomatic on a clear liquid diet, tolerating well. MRCP results reviewed with the patient which revealed a slightly dilated CBD measuring 8 mm with relative tapering in the distal common bile duct at the sphincter of Oddi. However, there were no gallstones or CBD stones noted. Pancreas appeared normal. At this time, the clinical and biochemical presentation are very consistent with acute gallstone pancreatitis, but surprisingly, all imaging studies did not show any evidence of gallstones. MRCP did not show any evidence of CBD stones and her serum transaminases are significantly improving with normal bilirubin and alkaline phosphatase and hence there is no indication for an ERCP at the present time. MRCP also showed some tapering at the sphincter of Oddi, which I am not sure at this time is clinically relevant with normal bilirubin and alkaline phosphatase. RECOMMENDATIONS: 1. Advance diet as tolerated. 2. Repeat labs in the morning. 3. If they continue to improve, no need for an ERCP at the present time. 4. We will follow with you closely. Thank you for this consultation. ANAND / BLU: [id number] /
[2020-01-01] MEDS: ENOXAPARIN 40 MG/0.4 ML SYRINGE SQ SCH (08:45)
[2020-01-01] MEDS: PANTOPRAZOLE 40 MG/10 ML VIAL IV SCH (08:45)
[2020-01-01 09:16] LABS: ALT 112 U/L (4-34); AST 82 U/L (14-36); African American GFR (CKD) >90 (>60 ml/min/1.73 sqM); Albumin 3.7 g/dL (3.5-5.0); Albumin/Globulin Ratio 1.3; Alkaline Phosphatase 123 U/L (38-126); Anion Gap 5 mmol/L; Blood Urea Nitrogen 8 mg/dL (7-17); Calcium 8.9 mg/dL (8.4-10.2); Carbon Dioxide 23 mmol/L (22-30); Chloride 111 mmol/L (98-107); Globulin 2.8 g/dL; Glucose 119 mg/dL (74-99); Non-African American GFR(CKD) >90 (>60 ml/min/1.73 sqM); Potassium 3.6 mmol/L (3.5-5.1); Sodium 139 mmol/L (137-145); Total Bilirubin 0.6 mg/dL (0.2-1.3); Total Protein 6.5 g/dL (6.3-8.2)
[2020-01-01] MEDS ORDERED: POTASSIUM CHLORIDE ER 20 MEQ TAB.ER PO SCH (10:00)
--- NOTE | 2020-01-01 11:55 | P.PN ---
Subjective Progress Note Date: 01/01/20 Principal diagnosis: Abdominal pain, pancreatitis A pleasant 54-year-old female who was admitted to the hospital with acute pancreatitis. She reports she is doing much better today, denies any abdominal pain, nausea, or vomiting. She is tolerating her diet. Liver enzymes continued to improve, total bilirubin 0.6, alkaline phosphatase 123, AST 82, ALT 112. Plans are for discharge home today. Objective - Vital Signs Vital signs: Vital Signs Temp 97.8 F 01/01/20 04:35 Pulse 71 01/01/20 04:35 Resp 16 01/01/20 04:35 BP 108/70 01/01/20 04:35 Pulse Ox 95 01/01/20 04:35 Intake & Output 12/31/19 01/01/20 01/01/20 18:59 06:59 18:59 Intake Total 900 Balance 900 Intake: Intake, IV Titration 500 Amount Magnesium Sulfate-D5w Pmx 100 1 gm In Dextrose/Water 1 100ml.bag @ 100 mls/hr IVPB Q1H [facility] Rx#: [id number] Sodium Chloride 0.9% 1, 400 000 ml @ 200 mls/hr IV . Q5H [facility] Rx#:[id number] Oral 400 Other: # Voids 2 2 # Bowel Movements 0 - Exam General appearance: The patient is alert, oriented, in no acute distress. HET: Head is normocephalic and atraumatic. Conjunctiva pink. Sclera anicteric. Neck: Supple without lymphadenopathy. Abdomen: Soft, nontender, nondistended with bowel sounds. No guarding or rigidity. Extremities: Normal skin color and turgor. No pedal edema Neurological: No focal deficits. Alert and oriented 3. - Labs CBC & Chem 7: 12/31/19 07:15 01/01/20 08:36 Labs: Abnormal Lab Results - Last 24 Hours (Table) 12/31/19 12/31/19 01/01/20 Range/Units 07:15 20:36 08:36 Potassium 3.3 L 3.4 L (3.5-5.5) mmol/L Chloride 112 H 111 H (96-109) mmol/L Carbon Dioxide 21.0 L (21.6-31.8) mmol/L Glucose 119 H (74-99) mg/dL Calcium 8.5 L (8.7-10.3) mg/dL AST 97 H 82 H (13-35) U/L ALT 129 H 112 H (8-44) U/L Total Protein 5.5 L (6.2-8.2) g/dL Albumin 3.60 L (3.80-4.90) g/dL Amylase 227 H (23-121) U/L Lipase 179 H (14-63) U/L Assessment and Plan Assessment: Acute biliary pancreatitis with significant improvement in symptoms. Lipase down to 179 from 20,000. Serum transaminases have significantly improved. She is tolerating a full liquid diet. MRCP revealed a slightly dilated common bile duct measuring 8 mm with relative tapering in the distal common bile duct at the sphincter of OD, however there were no gallstones or CBD stones noted. Pancreas appeared normal. At this time there is no indication for an ERCP. Plan: 1. Advance diet as tolerated 2. Repeat labs reviewed and improving 3. At this time there is no indication for an ERCP 4. Agree patient may be discharged home with follow-up. The impression and plan of care has been dictated as directed. Dr. Hina Tomas I performed a history and examination of this patient, discussed the same with the dictator. I agree with the dictator's note ,documented as a scribe. Any additional findings or plans will be noted.
--- NOTE | 2020-01-02 09:01 | P.DS ---
Providers Date of admission: 12/30/19 01:58 Expected date of discharge: 01/01/20 Attending physician: Rebecca Lopez Consults: 12/30/19 01:59 Consult Physician Urgent Consulting Provider: Gaby Tomas Consult Reason/Comments: gallstone pancreatitis Do you want consulting provider notified?: Yes, Notify in am 12/30/19 13:07 Consult Physician Routine Consulting Provider: Juan C Cordova Consult Reason/Comments: elevated enzymes, abdominal pain Do you want consulting provider notified?: Yes Primary care physician: Rema Avila Hospital Course: Final diagnosis -Gallstone pancreatitis, improved -Choledocholithiasis and cholelithiasis, ruled out -Elevated liver enzymes secondary to above. Improved. -Leukocytosis secondary to pancreatitis there is no evidence of ascending cholangitis at this time -DVT prophylaxis -GI prophylaxis Discharge disposition Patient is being discharged in a stable condition with guarded prognosis to home. Patient will follow-up with Dr. Avila in the outpatient setting upon discharge. Patient also instructed to follow-up with GI Dr. Tomas along with Dr. Fischer in the outpatient setting. Total time taken is greater than 35 minutes. History of present illness This is a 54-year-old female who was recently admitted with mid epigastric pain severe and radiating to the back along with some nausea and vomiting and was being closely monitored. Patient was seen and evaluated by GI along with surgery. Patient was also found to have gallstone pancreatitis with a dilated common bile duct without any obstructive choledocholithiasis. Patient underwent MRCP which showed mild dilatation of the common bile duct at 8 mm with a narrowing of the sphincter of Oddi with no evidence of mass noted. Patients symptoms have resolved and patient is tolerating clear and full liquid diet. Patient will follow-up with GI in the outpatient setting along with surgery Dr. Fischer per her request if surgical intervention is needed in the future. Currently no reports of chest pain, shortness of breath, or palpitations. Patient is afebrile. No reports of nausea or vomiting and patient is tolerating diet. Patient instructed to continue with full liquid and advance slowly on diet as tolerated. Patient verbalized understanding. Patient anticipating discharge today and would like to go home today. Liver functions trending down and instructed patient to follow-up with primary care provider to monitor. Patient will be going home today. On exam vital signs are stable. Temp is 97.8F, pulse is 71, respirations are 16, blood pressure is 108/70, oxygen saturation is 95% on room air. Cardio S1, S2 are muffled. Respiratory system shows diminished breath sounds at the bases with no wheezing or rhonchi noted. Abdomen is soft and nontender. Nervous system shows no focal deficits. Please refer to medication reconciliation sheet for a list of medications. Patient Condition at Discharge: Stable Plan - Discharge Summary Discharge Rx Participant: No New Discharge Prescriptions: Continue ALPRAZolam [Xanax] 0.25 mg PO BID PRN PRN Reason: Anxiety Omeprazole 20 mg PO BID PRN PRN Reason: Heartburn Mv-Min/Folic/Vit [id number] [Alive Women's 50 Plus Tablet] 2 tab PO DAILY Cholecalciferol [Vitamin D3 (25 Mcg = 1000 Iu)] 2,000 unit PO DAILY Discharge Medication List ALPRAZolam [Xanax] 0.25 mg PO BID PRN 12/07/17 [History] Omeprazole 20 mg PO BID PRN 12/07/17 [History] Cholecalciferol [Vitamin D3 (25 Mcg = 1000 Iu)] 2,000 unit PO DAILY 12/30/19 [History] Mv-Min/Folic/Vit [id number] [Alive Women's 50 Plus Tablet] 2 tab PO DAILY 12/30/19 [History] Follow up Appointment(s)/Referral(s): Blayne Fischer MD [Medical Doctor] - 2 Weeks (office closed for lunch) Gaby Tomas MD [STAFF PHYSICIAN] - 1 Week (office closed for lunch) Rema Avila MD [Primary Care Provider] - 1-2 days (Office closed for lunch) Activity/Diet/Wound Care/Special Instructions: Activity limited until follow-up Continue current diet of full liquids for the next 2 days and advance slowly as tolerated Follow-up with GI in the outpatient setting Follow-up with primary care provider upon discharge Follow up with surgery in the outpatient setting in 2-4 weeks Discharge Disposition: HOME SELF-CARE
== END 2020-01-01 13:36 | disposition home or self-care (01) | DRG 440 ==
LOC: EC 22:13 → 5NMEDONC 12-30 01:58
PROVIDERS: ADMIT Hospitalist; ATTEND Hospitalist
DX: K85.10 Biliary acute pancreatitis without necrosis or infection (principal); F41.9 Anxiety disorder, unspecified; K21.9 Gastro-esophageal reflux disease without esophagitis; D72.829 Elevated white blood cell count, unspecified; Z79.899 Other long term (current) drug therapy; Z88.2 Allergy status to sulfonamides; Z90.89 Acquired absence of other organs; Z82.5 Family history of asthma and other chronic lower respiratory diseases; Z83.3 Family history of diabetes mellitus
CPT/HCPCS: 36415; 71046; 74181; 76705; 80053; 82150; 83690; 83735; 84132; 84478; 84484; 85025; 85610; 85730; 93005; 96361; 96374; 96375; 99285

== ENCOUNTER 2020-02-19 08:19 | Emergency (ER) | payer OTHER ==
[2020-02-19 08:26] VITALS: BP 118/86; PULSE 81; RESP 18; TEMP 97.6
--- NOTE | 2020-02-19 08:43 | ED ---
General Adult HPI - General Chief complaint: ENT Stated complaint: ENT Time Seen by Provider: 02/19/20 08:27 Source: patient, RN notes reviewed Mode of arrival: ambulatory Limitations: no limitations - History of Present Illness Initial comments: 54-year-old female with a past medical history of GERD presents to the emergency room for a chief complaint of mouth pain. Patient reports that this started 3 days ago. States she has pain pump under the right lower side of her mouth near her submandibular lymph nodes. States that under her tongue there is a bump that is painful as well. Patient states that eating worsens this. Patient did see her doctor over teleconference who prescribed her azithromycin. She started this last night. No improvement as of yet. She denies any fevers. Denies any swelling in her throat.Patient has no other complaints at this time including shortness of breath, chest pain, abdominal pain, nausea or vomiting, headache, or visual changes. - Related Data Home Medications Medication Instructions Recorded Confirmed ALPRAZolam [Xanax] 0.25 mg PO BID PRN 12/07/17 12/30/19 Omeprazole 20 mg PO BID PRN 12/07/17 12/30/19 Cholecalciferol [Vitamin D3 (25 2,000 unit PO DAILY 12/30/19 12/30/19 Mcg = 1000 Iu)] Mv-Min/Folic/Vit K/Lut/Dqsf681 2 tab PO DAILY 12/30/19 12/30/19 [Alive Women's 50 Plus Tablet] Previous Rx's Medication Instructions Recorded Amoxicillin/Potassium Clav 1 tab PO Q12HR #20 tab 02/19/20 [Augmentin 875-125 Tablet] Allergies Allergy/AdvReac Type Severity Reaction Status Date / Time Sulfa (Sulfonamide Allergy Unknown Verified 02/19/20 08:26 Antibiotics) Review of Systems ROS Statement: Those systems with pertinent positive or pertinent negative responses have been documented in the HPI. ROS Other: All systems not noted in ROS Statement are negative. Past Medical History Past Medical History: GERD/Reflux History of Any Multi-Drug Resistant Organisms: None Reported Past Surgical History: Tonsillectomy Additional Past Surgical History / Comment(s): lasixs surgery on eye 2014 Past Anesthesia/Blood Transfusion Reactions: No Reported Reaction Past Psychological History: Anxiety Smoking Status: Never smoker Past Alcohol Use History: None Reported Past Drug Use History: None Reported - Past Family History Father Family Medical History: COPD, Diabetes Mellitus Mother Family Medical History: COPD Additional Family Medical History / Comment(s): pulmonary fibrosis General Exam Limitations: no limitations General appearance: alert, in no apparent distress Head exam: Present: atraumatic, normocephalic, normal inspection Eye exam: Present: normal appearance, PERRL, EOMI. Absent: scleral icterus, conjunctival injection, periorbital swelling ENT exam: Present: normal exam, mucous membranes moist, TM's normal bilaterally, normal external ear exam. Absent: normal oropharynx (Patient has slight supa thema and edema noted to sublingual fold and gland on R side. orohpharynx patent without edema or erythema) Neck exam: Present: normal inspection, tenderness (Patient has palpable nodule noted to R submandibular space is slightly tender approximately 2 cm x 2 cm), full ROM. Absent: meningismus Respiratory exam: Present: normal lung sounds bilaterally. Absent: respiratory distress, wheezes, rales, rhonchi, stridor Cardiovascular Exam: Present: regular rate, normal rhythm, normal heart sounds. Absent: systolic murmur, diastolic murmur, rubs, gallop, clicks GI/Abdominal exam: Present: soft, normal bowel sounds. Absent: distended, tenderness, guarding, rebound, rigid Neurological exam: Present: alert Course Vital Signs 02/19/20 08:24 Temperature 97.6 F Pulse Rate 81 Respiratory 18 Rate Blood Pressure 118/86 O2 Sat by Pulse 99 Oximetry Medical Decision Making - Medical Decision Making Vitals are stable. HPI physical exam is documented. I do believe patient has Sialolithiasis of the right submandibular gland. She has swelling of the semitubular gland as well as edema of the sublingual fold and tenderness near Dade's duct. No edema of the oropharynx. [facility] Patient was put on azithromycin which is not specific for sialolithiasis. I discussed that these generally do not require antibiotics, ho wever I will write patient Augmentin as she states abx have helped in the past and she can usually not getting to her doctors for a few days. I did recommend she wait a few days to see if this improves before starting the antibiotic. I did also give her follow-up to ENT. She will return for worsening symptoms. Case discussed with Dr blum Disposition Clinical Impression: Sialolithiasis of submandibular gland Disposition: HOME SELF-CARE Condition: Good Additional Instructions: Please use sour candies throughout the day to help dislodge stone. Drink plenty of fluids and massage the gland. Do not smoke. Discontinue azithromycin and start Augmentin. Follow up with your doctor or ENT if symptoms are not improving. If symptoms worsen or you develop fevers return to the emergency room. Prescriptions: Amoxicillin/Potassium Clav [Augmentin 875-125 Tablet] 1 tab PO Q12HR #20 tab Is patient prescribed a controlled substance at d/c from ED?: No Referrals: Rema Avila MD [Primary Care Provider] - 1-2 days Italo Levine MD [STAFF PHYSICIAN] - 1-2 days Time of Disposition: 08:50
[2020-02-19] MEDS ORDERED: AMOXIC-POT CLAV 875MG STARTER PACK 2 TAB BTL PO STA (08:50)
[2020-02-19] MEDS ORDERED: ACET/COD 300 MG/30 MG STARTER PACK 6 TAB BTL PO STA (08:58)
== END 2020-02-19 09:17 | disposition home or self-care (01) ==
LOC: EC 08:19
DX: K11.5 Sialolithiasis (principal); F41.9 Anxiety disorder, unspecified; K21.9 Gastro-esophageal reflux disease without esophagitis; Z79.899 Other long term (current) drug therapy; Z88.2 Allergy status to sulfonamides; Z90.89 Acquired absence of other organs; Z96.89 Presence of other specified functional implants
CPT/HCPCS: 99283

== ENCOUNTER 2020-02-20 09:19 | Emergency (ER) | payer OTHER ==
[2020-02-20 09:26] VITALS: RESP 18
[2020-02-20] MEDS ORDERED: HYDROmorphone 0.5 MG/0.5 ML SYRINGE IVP STA (09:45)
[2020-02-20] MEDS ORDERED: ONDANSETRON 4 MG/2 ML VIAL IVP STA (09:45)
--- NOTE | 2020-02-20 09:56 | ED ---
ENT HPI - General Chief complaint: Dental/Oral Stated complaint: revisit- swollen glands Time Seen by Provider: 02/20/20 09:30 Source: patient, RN notes reviewed Mode of arrival: ambulatory Limitations: no limitations - History of Present Illness Initial comments: This is a 54-year-old male presented from chief complaint of increasing facial pain and swelling. Patient was started on antibiotics 3 days ago. She was given Augmentin yesterday. Patient states it was not better pain is worse. Patient denies any fever or Chills no difficulty swan patient offers no complaints. - Related Data Home Medications Medication Instructions Recorded Confirmed ALPRAZolam [Xanax] 0.25 mg PO BID PRN 12/07/17 02/20/20 Acetaminophen-Codeine 300-30mg 1 - 2 tab PO Q4-6H PRN 02/20/20 02/20/20 [Tylenol w/codeine #3] Ibuprofen [Motrin Ib] 600 mg PO Q8H PRN 02/20/20 02/20/20 Previous Rx's Medication Instructions Recorded Amoxicillin/Potassium Clav 1 tab PO Q12HR #20 tab 02/19/20 [Augmentin 875-125 Tablet] HYDROcodone/APAP 7.5-325MG [[place] 1 tab PO Q6HR PRN 3 Days #12 tab 02/20/20 7.5-325] Allergies Allergy/AdvReac Type Severity Reaction Status Date / Time Sulfa (Sulfonamide Allergy Unknown Verified 02/20/20 10:43 Antibiotics) Review of Systems ROS Statement: Those systems with pertinent positive or pertinent negative responses have been documented in the HPI. ROS Other: All systems not noted in ROS Statement are negative. Past Medical History Past Medical History: GERD/Reflux History of Any Multi-Drug Resistant Organisms: None Reported Past Surgical History: Tonsillectomy Additional Past Surgical History / Comment(s): lasixs surgery on eye 2014 Past Anesthesia/Blood Transfusion Reactions: No Reported Reaction Past Psychological History: Anxiety Smoking Status: Never smoker Past Alcohol Use History: None Reported Past Drug Use History: None Reported - Past Family History Father Family Medical History: COPD, Diabetes Mellitus Mother Family Medical History: COPD Additional Family Medical History / Comment(s): pulmonary fibrosis General Exam Limitations: no limitations General appearance: alert, in no apparent distress Head exam: Present: atraumatic, normocephalic, normal inspection Eye exam: Present: normal appearance, PERRL, EOMI. Absent: scleral icterus, conjunctival injection, periorbital swelling ENT exam: Present: mucous membranes moist. Absent: normal oropharynx (Purulent Drainage noted from the sub-lingual region, there is swelling in the right submandibular right parotid gland region) Neck exam: Present: normal inspection, full ROM. Absent: tenderness, meningismus, lymphadenopathy Respiratory exam: Present: normal lung sounds bilaterally. Absent: respiratory distress, wheezes, rales, rhonchi, stridor Cardiovascular Exam: Present: regular rate, normal rhythm, normal heart sounds. Absent: systolic murmur, diastolic murmur, rubs, gallop, clicks GI/Abdominal exam: Present: soft, normal bowel sounds. Absent: distended, tenderness, guarding, rebound, rigid Course Vital Signs 02/20/20 09:23 Temperature 99.3 F Pulse Rate 80 Respiratory 18 Rate Blood Pressure 145/87 O2 Sat by Pulse 99 Oximetry Medical Decision Making - Medical Decision Making 54-year-old presented for facial swelling. Patient had CT which showed submandibular swelling, possible stone. Patient did have a stone that was expressed during her visit here she did have cultures taken patient states greatly improved was offered admission but states she feels comfortable being discharged. - Lab Data Result diagrams: 02/20/20 09:56 02/20/20 09:56 Lab Results 02/20/20 02/20/20 02/20/20 Range/Units 09:56 09:56 09:56 WBC 14.8 H (3.8-10.6) k/uL RBC 4.99 (3.80-5.40) m/uL Hgb 14.9 (11.4-16.0) gm/dL Hct 44.8 (34.0-46.0) % MCV 89.8 (80.0-100.0) fL MCH 29.9 (25.0-35.0) pg MCHC 33.3 (31.0-37.0) g/dL RDW 12.5 (11.5-15.5) % Plt Count 265 (150-450) k/uL MPV 7.1 Neutrophils % 77 % Lymphocytes % 13 % Monocytes % 7 % Eosinophils % 1 % Basophils % 1 % Neutrophils # 11.4 H (1.3-7.7) k/uL Lymphocytes # 1.9 (1.0-4.8) k/uL Monocytes # 1.0 (0-1.0) k/uL Eosinophils # 0.2 (0-0.7) k/uL Basophils # 0.1 (0-0.2) k/uL Sodium 140 (137-145) mmol/L Potassium 4.2 (3.5-5.1) mmol/L Chloride 108 H (98-107) mmol/L Carbon Dioxide 27 (22-30) mmol/L Anion Gap 5 mmol/L BUN 10 (7-17) mg/dL Creatinine 0.79 (0.52-1.04) mg/dL Est GFR (CKD-EPI)AfAm >90 (>60 ml/min/1.73 sqM) Est GFR (CKD-EPI)NonAf 85 (>60 ml/min/1.73 sqM) Glucose 111 H (74-99) mg/dL Plasma Lactic Acid [place] 0.9 (0.7-2.0) mmol/L Calcium 9.8 (8.4-10.2) mg/dL Total Bilirubin 0.7 (0.2-1.3) mg/dL AST 51 H (14-36) U/L ALT 39 H (4-34) U/L Alkaline Phosphatase 119 (38-126) U/L Total Protein 7.6 (6.3-8.2) g/dL Albumin 4.3 (3.5-5.0) g/dL Amylase 125 H (30-110) U/L Lipase 556 H (23-300) U/L Disposition Clinical Impression: Sialolithiasis of submandibular gland Disposition: HOME SELF-CARE Condition: Stable Instructions (If sedation given, give patient instructions): Sialoadenitis (ED) Additional Instructions: Please return to the Emergency Department if symptoms worsen or any other concerns. Prescriptions: HYDROcodone/APAP 7.5-325MG [[place] 7.5-325] 1 tab PO Q6HR PRN 3 Days #12 tab PRN Reason: pain Is patient prescribed a controlled substance at d/c from ED?: No Referrals: Rema Avila MD [Primary Care Provider] - 1-2 days Time of Disposition: 11:42
[2020-02-20 10:05] LABS: Basophils # (A) 0.1 k/uL (0-0.2); Basophils % (A) 1 %; Eosinophils # (A) 0.2 k/uL (0-0.7); Eosinophils % (A) 1 %; HCT 44.8 % (34.0-46.0); HGB 14.9 gm/dL (11.4-16.0); Lymphocytes # (A) 1.9 k/uL (1.0-4.8); Lymphocytes % (A) 13 %; MCH 29.9 pg (25.0-35.0); MCHC 33.3 g/dL (31.0-37.0); MCV 89.8 fL (80.0-100.0); Mean Platelet Volume 7.1; Monocytes % (A) 7 %; Neutrophils # (A) 11.4 k/uL (1.3-7.7); Neutrophils % (A) 77 %; Platelet Count 265 k/uL (150-450); RBC 4.99 m/uL (3.80-5.40); RDW 12.5 % (11.5-15.5); WBC 14.8 k/uL (3.8-10.6)
[2020-02-20 10:15] LABS: ALT 39 U/L (4-34); AST 51 U/L (14-36); African American GFR (CKD) >90 (>60 ml/min/1.73 sqM); Albumin 4.3 g/dL (3.5-5.0); Alkaline Phosphatase 119 U/L (38-126); Amylase 125 U/L (30-110); Anion Gap 5 mmol/L; Blood Urea Nitrogen 10 mg/dL (7-17); Calcium 9.8 mg/dL (8.4-10.2); Carbon Dioxide 27 mmol/L (22-30); Chloride 108 mmol/L (98-107); Glucose 111 mg/dL (74-99); Lipase 556 U/L (23-300); Non-African American GFR(CKD) 85 (>60 ml/min/1.73 sqM); Potassium 4.2 mmol/L (3.5-5.1); Sodium 140 mmol/L (137-145); Total Bilirubin 0.7 mg/dL (0.2-1.3); Total Protein 7.6 g/dL (6.3-8.2)
--- NOTE | 2020-02-20 10:50 | CT ---
EXAMINATION TYPE: CT soft tissue neck w con DATE OF EXAM: 02/20/2020 COMPARISON: None HISTORY: 54-year-old female infection, Right sided neck pain and swelling TECHNIQUE: Contiguous axial scanning of the soft tissues of the neck performed with IV Contrast, dede ent injected with 100 mL of Isovue 300. Coronal/sagittal reconstructions performed. CT DLP: 300.3 mGycm Automated exposure control for dose reduction was used. FINDINGS: Visualized intracranial structures, orbits and globes, paranasal sinuses, mastoid air cells appear cl ear. Nasopharynx is clear. Bilateral palatine tonsillar hypertrophy and marked lingual tonsillar hypertrophy. Prevertebral soft tissues within normal limits. Glottic and subglottic structures as well as the tracheal column and visualized upper lungs are clear . There is asymmetric enlargement and enhancement of the right submandibular gland measuring up to 4.0 cm craniocaudal versus 2.9 cm on the left. There is a 3.6 mm calculus at the anterior inferior aspect of the right tongue. Asymmetrically larger, borderline sized 1.4 cm right upper cervical lymph node, axial image 58 and sa gittal image 26. Asymmetrically larger 8 mm right submandibular space lymph node. Mild asymmetric thickening of the ov erlying right platysma muscle. 2.4 cm heterogeneous nodule inferior left lobe of the thyroid gland. Parotid glands are atrophic. Reversal of the normal cervical lordosis. Discussed by complex causes a mild spinal canal stenosis at C5-C6. IMPRESSION: 1. ASYMMETRICALLY SWOLLEN RIGHT SUBMANDIBULAR GLAND. CORRELATE FOR SIALOADENITIS. THERE IS A POSSIBLE 3.6 MM SIALOLITH NEAR THE OSTIUM OF THE RIGHT SUBMANDIBULAR DUCT. 2. SOME ADJACENT INFLAMMATION MINIMALLY THICKENING THE RIGHT PLATYSMA MUSCLE AND SOME REACTIVE RIGHT- SIDED BORDERLINE LYMPHADENOPATHY MEASURING UP TO 1.4 CM SHORT AXIS. 3. NONEMERGENT FOLLOW-UP THYROID ULTRASOUND CAN ASSESS FOR POSSIBLE 2.4 CM LEFT THYROID NODULE.
[2020-02-20 11:41] VITALS: BP 103/66; PULSE 75; TEMP 98.2
== END 2020-02-20 11:55 | disposition home or self-care (01) ==
LOC: EC 09:19
DX: K11.5 Sialolithiasis (principal); F41.9 Anxiety disorder, unspecified; Z79.899 Other long term (current) drug therapy; Z88.2 Allergy status to sulfonamides
CPT/HCPCS: 99284 ×2; 96374 ×2; 96375 ×2; 36415; 80053; 82150; 83605; 83690; 85025; 87040; 87070; 87205; 70491; J2405; J1170; Q9967

== ENCOUNTER → 2020-09-14 | Outpatient (CLI) | payer OTHER ==
--- NOTE | 2020-09-14 17:52 | US ---
EXAMINATION TYPE: US pelvic complete DATE OF EXAM: 09/14/2020 COMPARISON: NONE CLINICAL HISTORY: 55-year-old female R10.2 PELVIC AND PERINEAL PAIN. Pelvic pressure TECHNIQUE: Transabdominal (TA). EXAM MEASUREMENTS: Uterus: 6.3 x 2.4 x 4.5 cm Endometrial Stripe: 0.3 cm Right Ovary: 1.5 x 1.0 x 1.7 cm Left Ovary: 2.0 x 1.3 x 1.5 cm 1. Uterus: Anteverted and otherwise wnl 2. Endometrium: wnl 3. Right Ovary: wnl 4. Left Ovary: wnl 5. Bilateral Adnexa: wnl 6. Posterior cul-de-sac: wnl IMPRESSION: Unremarkable transabdominal sonographic examination of the pelvis.
== END | disposition home or self-care (01) ==
LOC: RADUSWWP 16:05
PROVIDERS: ATTEND Internal Medicine
DX: R10.2 Pelvic and perineal pain (principal)
CPT/HCPCS: 76856

== ENCOUNTER → 2020-10-02 | Outpatient (CLI) | payer OTHER ==
--- NOTE | 2020-10-05 09:07 | MM ---
Reason for exam: screening (asymptomatic). Last mammogram was performed 4 years and 2 months ago. History: Patient is postmenopausal. Benign MG stereo VAD BX LT of the left breast, December 09, 2014. Physical Findings: A clinical breast exam by your physician is recommended on an annual basis and results should be correlated with mammographic findings. MG Screening Mammo w CAD Bilateral CC and MLO view(s) were taken. Prior study comparison: July 22, 2016, bilateral MG screening mammo w CAD. November 28, 2014, left breast MG 3d work up w/cad LT. There are scattered fibroglandular densities. New nodular density upper outer left breast zone A. ASSESSMENT: Incomplete: need additional imaging evaluation, BI-RAD 0 RECOMMENDATION: Special view mammogram and ultrasound of the left breast. [facility] will attempt to contact patient to return for supplemental views and ultrasound.
== END | disposition home or self-care (01) ==
LOC: RADMAMWWP 07:48
PROVIDERS: ATTEND Internal Medicine
DX: Z12.31 Encounter for screening mammogram for malignant neoplasm of breast (principal); Z78.0 Asymptomatic menopausal state
CPT/HCPCS: 77067

== ENCOUNTER → 2020-10-09 | Outpatient (CLI) | payer OTHER ==
--- NOTE | 2020-10-12 08:59 | MM ---
Reason for exam: additional evaluation requested from abnormal screening. Last mammogram was performed less than 1 month ago. History: Patient is postmenopausal. Benign MG stereo VAD BX LT of the left breast, December 09, 2014. Physical Findings: Nurse did not find any significant physical abnormalities on exam. MG Work Up Mamm w CAD LT Spot compression CC, spot compression MLO, and ML view(s) were taken of the left breast. Prior study comparison: October 02, 2020, bilateral MG screening mammo w CAD. The breast tissue is almost entirely fat. Mass persists. No significant new findings when compared with prior exam. These results were verbally communicated with the patient and result sheet given to the patient on 10/09/20. ASSESSMENT: Incomplete: need additional imaging evaluation, BI-RAD 0 RECOMMENDATION: Ultrasound of the left breast.
--- NOTE | 2020-10-12 09:01 | USB ---
Reason for exam: additional evaluation requested from abnormal screening. History: Patient is postmenopausal. Benign MG stereo VAD BX LT of the left breast, December 09, 2014. US Breast Workup Limited LT Left limited breast ultrasound including focal area of concern, retroareolar and axilla demonstrates a 0.8 x 0.3 x 0.6cm cystic cluster at 3 o'clock. These results were verbally communicated with the patient and result sheet given to the patient on 10/09/20. ASSESSMENT: Probably benign, BI-RAD 3 RECOMMENDATION: Follow-up diagnostic mammogram of the left breast in 6 months.
== END | disposition home or self-care (01) ==
LOC: RADMAMWWP 07:10
PROVIDERS: ATTEND Internal Medicine
DX: N63.20 Unspecified lump in the left breast, unspecified quadrant (principal); Z78.0 Asymptomatic menopausal state
CPT/HCPCS: 77065

== ENCOUNTER 2020-11-20 09:17 | Emergency (ER) | payer OTHER ==
[2020-11-20 09:24] VITALS: RESP 18
[2020-11-20] MEDS ORDERED: SODIUM CHLORIDE 0.9% 1,000 ML IV STA (09:37)
--- NOTE | 2020-11-20 09:48 | ED ---
General Adult HPI - General Chief complaint: Syncope Stated complaint: Syncope Time Seen by Provider: 11/20/20 09:26 Source: patient, EMS, RN notes reviewed Mode of arrival: EMS Limitations: no limitations - History of Present Illness Initial comments: This 55-year-old female presents emergency department via EMS with chief complaint of syncopal episode. Patient states she wasn't feeling well this morning. Patient was given rate to go get tested for COVID-19 as her has been positive for 1 week. Patient states that she feels like she is dev eloping respiratory symptoms she states that she stood up was standing there and started feeling very hot flushed feeling and passed out. Patient had no significant head injury. This was witnessed by . Patient found to be hypertensive upon arrival was given 800 mL of fluids which improved her symptoms. She denies any chest pain palpitations no history of PE DVT no headache or vision focal weakness. - Related Data Home Medications Medication Instructions Recorded Confirmed ALPRAZolam [Xanax] 0.25 mg PO BID PRN 12/07/17 02/20/20 Acetaminophen-Codeine 300-30mg 1 - 2 tab PO Q4-6H PRN 02/20/20 02/20/20 [Tylenol w/codeine #3] Ibuprofen [Motrin Ib] 600 mg PO Q8H PRN 02/20/20 02/20/20 Previous Rx's Medication Instructions Recorded Amoxicillin/Potassium Clav 1 tab PO Q12HR #20 tab 02/19/20 [Augmentin 875-125 Tablet] HYDROcodone/APAP 7.5-325MG [[place] 1 tab PO Q6HR PRN 3 Days #12 tab 02/20/20 7.5-325] Allergies Allergy/AdvReac Type Severity Reaction Status Date / Time Sulfa (Sulfonamide Allergy Unknown Verified 11/20/20 09:20 Antibiotics) Review of Systems ROS Statement: Those systems with pertinent positive or pertinent negative responses have been documented in the HPI. ROS Other: All systems not noted in ROS Statement are negative. Past Medical History Past Medical History: GERD/Reflux History of Any Multi-Drug Resistant Organisms: None Reported Past Surgical History: Tonsillectomy Additional Past Surgical History / Comment(s): lasixs surgery on eye 2014 Past Anesthesia/Blood Transfusion Reactions: No Reported Reaction Past Psychological History: Anxiety Smoking Status: Never smoker Past Alcohol Use History: None Reported Past Drug Use History: None Reported - Past Family History Father Family Medical History: COPD, Diabetes Mellitus Mother Family Medical History: COPD Additional Family Medical History / Comment(s): pulmonary fibrosis General Exam Limitations: no limitations General appearance: alert, in no apparent distress Head exam: Present: atraumatic, normocephalic, normal inspection Eye exam: Present: normal appearance, PERRL, EOMI. Absent: scleral icterus, conjunctival injection, periorbital swelling ENT exam: Present: normal exam, mucous membranes moist Neck exam: Present: normal inspection, full ROM. Absent: tenderness, meningism us, lymphadenopathy Respiratory exam: Present: normal lung sounds bilaterally. Absent: respiratory distress, wheezes, rales, rhonchi, stridor Cardiovascular Exam: Present: regular rate, normal rhythm, normal heart sounds. Absent: systolic murmur, diastolic murmur, rubs, gallop, clicks GI/Abdominal exam: Present: soft, normal bowel sounds. Absent: distended, tenderness, guarding, rebound, rigid Neurological exam: Present: alert, oriented X3, CN II-XII intact, reflexes normal. Absent: motor sensory deficit Skin exam: Present: warm, dry, intact, normal color. Absent: rash Course Vital Signs 11/20/20 11/20/20 09:20 09:48 Temperature 99.2 F Pulse Rate 89 90 Respiratory 18 18 Rate Blood Pressure 99/71 96/75 O2 Sat by Pulse 98 98 Oximetry Medical Decision Making - Medical Decision Making 55-year-old presented emergency from for syncopal episode. Patient was well hydrated, feels greatly improved was reviewed negative d-dimer, negative tropo lester. Patient is a cigarette currently. Patient most likely a vasovagal response she has no recurrent hypotension is able to ambulate with mild discomfort on her left ankle. Return parameters were discussed. - Lab Data Result diagrams: 11/20/20 09:45 11/20/20 09:45 Lab Results 11/20/20 11/20/20 11/20/20 Range/Units 09:45 09:45 09:45 WBC 5.8 (3.8-10.6) k/uL RBC 4.31 (3.80-5.40) m/uL Hgb 13.3 (11.4-16.0) gm/dL Hct 39.8 (34.0-46.0) % MCV 92.3 (80.0-100.0) fL MCH 30.9 (25.0-35.0) pg MCHC 33.5 (31.0-37.0) g/dL RDW 12.6 (11.5-15.5) % Plt Count 197 (150-450) k/uL MPV 7.4 Neutrophils % 71 % Lymphocytes % 18 % Monocytes % 7 % Eosinophils % 0 % Basophils % 1 % Neutrophils # 4.2 (1.3-7.7) k/uL Lymphocytes # 1.1 (1.0-4.8) k/uL Monocytes # 0.4 (0-1.0) k/uL Eosinophils # 0.0 (0-0.7) k/uL Basophils # 0.0 (0-0.2) k/uL PT 10.0 (9.0-12.0) sec INR 0.9 (<1.2) APTT 22.2 (22.0-30.0) sec D-Dimer 0.36 (<0.60) mg/L FEU Sodium 137 (137-145) mmol/L Potassium 3.9 (3.5-5.1) mmol/L Chloride 108 H (98-107) mmol/L Carbon Dioxide 22 (22-30) mmol/L Anion Gap 7 mmol/L BUN 14 (7-17) mg/dL Creatinine 0.72 (0.52-1.04) mg/dL Est GFR (CKD-EPI)AfAm >90 (>60 ml/min/1.73 sqM) Est GFR (CKD-EPI)NonAf >90 (>60 ml/min/1.73 sqM) Glucose 111 H (74-99) mg/dL Calcium 8.2 L (8.4-10.2) mg/dL Magnesium 1.7 (1.6-2.3) mg/dL Total Bilirubin 0.3 (0.2-1.3) mg/dL AST 27 (14-36) U/L ALT 16 (4-34) U/L Alkaline Phosphatase 78 (38-126) U/L Troponin I (0.000-0.034) ng/mL Total Protein 6.0 L (6.3-8.2) g/dL Albumin 3.2 L (3.5-5.0) g/dL Coronavirus (PCR) (Not Detectd) 11/20/20 11/20/20 Range/Units 09:45 09:45 WBC (3.8-10.6) k/uL RBC (3.80-5.40) m/uL Hgb (11.4-16.0) gm/dL Hct (34.0-46.0) % MCV (80.0-100.0) fL MCH (25.0-35.0) pg MCHC (31.0-37.0) g/dL RDW (11.5-15.5) % Plt Count (150-450) k/uL MPV Neutrophils % % Lymphocytes % % Monocytes % % Eosinophils % % Basophils % % Neutrophils # (1.3-7.7) k/uL Lymphocytes # (1.0-4.8) k/uL Monocytes # (0-1.0) k/uL Eosinophils # (0-0.7) k/uL Basophils # (0-0.2) k/uL PT (9.0-12.0) sec INR (<1.2) APTT (22.0-30.0) sec D-Dimer (<0.60) mg/L FEU Sodium (137-145) mmol/L Potassium (3.5-5.1) mmol/L Chloride (98-107) mmol/L Carbon Dioxide (22-30) mmol/L Anion Gap mmol/L BUN (7-17) mg/dL Creatinine (0.52-1.04) mg/dL Est GFR (CKD-EPI)AfAm (>60 ml/min/1.73 sqM) Est GFR (CKD-EPI)NonAf (>60 ml/min/1.73 sqM) Glucose (74-99) mg/dL Calcium (8.4-10.2) mg/dL Magnesium (1.6-2.3) mg/dL Total Bilirubin (0.2-1.3) mg/dL AST (14-36) U/L ALT (4-34) U/L Alkaline Phosphatase (38-126) U/L Troponin I <0.012 (0.000-0.034) ng/mL Total Protein (6.3-8.2) g/dL Albumin (3.5-5.0) g/dL Coronavirus (PCR) Not Detected (Not Detectd) Disposition Clinical Impression: Vasovagal syncope Disposition: HOME SELF-CARE Condition: Stable Instructions (If sedation given, give patient instructions): Syncope (ED) Additional Instructions: Please return to the Emergency Department if symptoms worsen or any other concerns. Is patient prescribed a controlled substance at d/c from ED?: No Referrals: Rema Avila MD [Primary Care Provider] - 1-2 days Time of Disposition: 10:50
[2020-11-20 10:00] LABS: Basophils % (A) 1 %; Eosinophils % (A) 0 %; HCT 39.8 % (34.0-46.0); HGB 13.3 gm/dL (11.4-16.0); Lymphocytes # (A) 1.1 k/uL (1.0-4.8); Lymphocytes % (A) 18 %; MCH 30.9 pg (25.0-35.0); MCHC 33.5 g/dL (31.0-37.0); MCV 92.3 fL (80.0-100.0); Mean Platelet Volume 7.4; Monocytes # (A) 0.4 k/uL (0-1.0); Monocytes % (A) 7 %; Neutrophils # (A) 4.2 k/uL (1.3-7.7); Neutrophils % (A) 71 %; Platelet Count 197 k/uL (150-450); RBC 4.31 m/uL (3.80-5.40); RDW 12.6 % (11.5-15.5); WBC 5.8 k/uL (3.8-10.6)
[2020-11-20 10:15] LABS: ALT 16 U/L (4-34); AST 27 U/L (14-36); African American GFR (CKD) >90 (>60 ml/min/1.73 sqM); Albumin 3.2 g/dL (3.5-5.0); Alkaline Phosphatase 78 U/L (38-126); Anion Gap 7 mmol/L; Blood Urea Nitrogen 14 mg/dL (7-17); Calcium 8.2 mg/dL (8.4-10.2); Carbon Dioxide 22 mmol/L (22-30); Chloride 108 mmol/L (98-107); Glucose 111 mg/dL (74-99); Magnesium 1.7 mg/dL (1.6-2.3); Non-African American GFR(CKD) >90 (>60 ml/min/1.73 sqM); Potassium 3.9 mmol/L (3.5-5.1); Sodium 137 mmol/L (137-145); Total Bilirubin 0.3 mg/dL (0.2-1.3)
[2020-11-20 10:21] LABS: INR 0.9 (<1.2); Partial Thromboplastin Time 22.2 sec (22.0-30.0)
--- NOTE | 2020-11-20 10:28 | XR ---
Left ankle HISTORY: Pain 3 views of the left ankle Soft tissue swelling is noted especially laterally. Bone mineralization, joint spaces and alignment a re maintained. There is a plantar calcaneal spur. IMPRESSION: No fracture or dislocation is evident.
[2020-11-20 11:02] LABS: Appearance,Urine Clear (Clear); Bilirubin,Urine Negative (Negative); Blood,Urine Negative (Negative); Color,Urine Light Yellow; Glucose,Urine (UA) Negative (Negative); Ketones,Urine Negative (Negative); Leukocyte Esterase,Urine Negative (Negative); Nitrite,Urine Negative (Negative); Protein,Urine Negative (Negative); Specific Gravity,Urine 1.004 (1.001-1.035); Urobilinogen,Urine <2.0 mg/dL (<2.0)
[2020-11-20 12:37] VITALS: BP 99/50; PULSE 82; TEMP 98.9
== END 2020-11-20 12:10 | disposition home or self-care (01) ==
LOC: EC 09:17
DX: R55 Syncope and collapse (principal); Z20.822 Contact with and (suspected) exposure to COVID-19; Z88.2 Allergy status to sulfonamides; K21.9 Gastro-esophageal reflux disease without esophagitis; F41.9 Anxiety disorder, unspecified
CPT/HCPCS: 99284; 96360; 96361; 36415; 93005; 85379; 80053; 83735; 84484; 85025; 85610; 85730; 81003; 87635; 73610; L4350

== ENCOUNTER → 2022-02-10 | Outpatient (CLI) | payer BC ==
--- NOTE | 2022-02-13 13:40 | MM ---
Reason for Exam: Screening (asymptomatic). Last mammogram was performed 1 year(s) and 4 month(s) ago. Patient History: Menarche at age 11. First Full-Term at age 24. Postmenopausal. Patient has history of breast feeding. 12/09/2014, Benign Core Biopsy on the left side. Risk Values: Keyla 5 year model risk: 1.8%. NCI Lifetime model risk: 10.0%. Prior Study Comparison: 07/22/2016 Bilateral Screening Mammogram, [facility]. 10/02/2020 Bilateral Screening Mammogram, [facility]. 10/09/2020 Left Diagnostic Mammogram, [facility]. Tissue Density: There are scattered fibroglandular densities. Findings: Analyzed By CAD. Nodularity anterior upper outer quadrant left breast is unchanged for just over a year compatible with a benign etiology. Chronic nodularity posterior right breast and unchanged focal asymmetry upper outer quadrant left breast. Microclip medial left breast from prior biopsy. No significant change from prior exams. Overall Assessment: Benign, BI-RAD 2 Management: Screening Mammogram of both breasts in 1 year. 1. Patient should continue monthly self breast exams. 2. A clinical breast exam by your physician is recommended on an annual basis. 3. This exam should not preclude additional follow-up of suspicious palpable abnormalities. Electronically signed and approved by: Janett Wheeler M.D. Radiologist
== END | disposition home or self-care (01) ==
LOC: RADMAMWWP 16:02
PROVIDERS: ATTEND Internal Medicine
DX: Z12.31 Encounter for screening mammogram for malignant neoplasm of breast (principal); Z78.0 Asymptomatic menopausal state
CPT/HCPCS: 77067

== ENCOUNTER 2022-02-17 19:25 | Emergency (ER) | payer BC ==
--- NOTE | 2022-02-17 21:14 | US ---
EXAMINATION TYPE: US kidneys/renal and bladder DATE OF EXAM: 02/17/2022 COMPARISON: 12/30/2019 right upper quadrant limited ultrasound and MRCP 12/30/2019 CLINICAL HISTORY: Right flank pain EXAM MEASUREMENTS: Right Kidney: 11.1 x 5.2 x 5.2 cm Left Kidney: 9.5 x 3.8 x 4.4 cm Right Kidney: Mild hydronephrosis visualized. This was not seen on the prior studies. Left Kidney: Lower pole appears to have hydronephrosis. This was seen on the prior MRCP. Bladder: Patient voided before exam. Bilateral Jets seen: No No nephrolithiasis is seen. No renal masses identified. The urinary bladder is not evaluated on this examination. IMPRESSION: 1. Mild right hydronephrosis. 2. Mild lower pole hydronephrosis, seen on prior study 2019.
[2022-02-17 22:00] LABS: Appearance,Urine Cloudy (Clear); Bacteria,Urine Rare /hpf; Bilirubin,Urine Negative (Negative); Blood,Urine Large (Negative); Budding Yeast,Urine Rare /hpf; Color,Urine Yellow; Glucose,Urine (UA) Negative (Negative); Ketones,Urine Trace (Negative); Leukocyte Esterase,Urine Trace (Negative); Mucus,Urine Occasional /hpf; Nitrite,Urine Negative (Negative); Protein,Urine Trace (Negative); RBC,Urine >182 /hpf (0-5); Specific Gravity,Urine 1.025 (1.001-1.035); Squamous Epithelial Cell,Urine 1 /hpf (0-4); Urobilinogen,Urine <2.0 mg/dL (<2.0); WBC,Urine 5 /hpf (0-5)
[2022-02-17 22:55] LABS: Albumin 4.6 g/dL (3.5-5.0); Calcium 9.6 mg/dL (8.4-10.2); Potassium 4.4 mmol/L (3.5-5.1); Total Bilirubin 0.5 mg/dL (0.2-1.3); Total Protein 7.5 g/dL (6.3-8.2)
[2022-02-17 23:02] LABS: Basophils % (A) 0 %; Eosinophils % (A) 0 %; HCT 44.9 % (34.0-46.0); HGB 14.8 gm/dL (11.4-16.0); Lymphocytes # (A) 1.2 k/uL (1.0-4.8); Lymphocytes % (A) 10 %; MCH 29.2 pg (25.0-35.0); MCV 88.5 fL (80.0-100.0); Mean Platelet Volume 7.3; Monocytes # (A) 0.4 k/uL (0-1.0); Monocytes % (A) 3 %; Neutrophils # (A) 10.7 k/uL (1.3-7.7); Neutrophils % (A) 86 %; Platelet Count 257 k/uL (150-450); RBC 5.07 m/uL (3.80-5.40); RDW 12.1 % (11.5-15.5); WBC 12.5 k/uL (3.8-10.6)
[2022-02-18] MEDS ORDERED: SODIUM CHLORIDE 0.9% 1,000 ML IV ONE (00:11)
[2022-02-18] MEDS ORDERED: ONDANSETRON 4 MG/2 ML VIAL IVP STA (00:12)
[2022-02-18] MEDS ORDERED: KETOROLAC 15 MG/ML 1 ML VIAL IVP STA ×2 (00:12→03:00)
[2022-02-18 00:51] VITALS: TEMP 98.7
--- NOTE | 2022-02-18 01:43 | CT ---
EXAMINATION TYPE: CT abdomen pelvis wo con DATE OF EXAM: 02/18/2022 COMPARISON: HISTORY: RT flank pain that radiates to abd. N/V. R/O RENAL STONES CT DLP: 706.9 mGycm Automated exposure control for dose reduction was used. Images obtained from the diaphragm to the floor the pelvis with no contrast. The lung bases are clear. No pleural effusion. Heart size is normal. No pericardial effusion. Liver spleen stomach pancreas appear intact. Bowel gas are not dilated. Gallbladder appears normal. There is no adrenal mass. Kidneys of normal size. There is right-sided hydronephrosis and hydroureter . There is a 4 mm obstructing calculus in the lower right ureter. Urinary bladder distends smoothly. Uterus is anteverted. No free fluid in the pelvis. No pelvic mass. There are some phleboliths in the pelvis. No inguinal hernia. There is no mesenteric edema. No ascites or free air. No sign of a bowel obstruction. Appendix appear s normal. The lumbar vertebrae have normal alignment. Posterior elements are intact. No compression fracture. B britta pelvis is intact. The hip joints are intact. IMPRESSION: Obstructing calculus in the lower right ureter with right-sided hydronephrosis and hydroureter. Normal appendix.
[2022-02-18] MEDS ORDERED: TAMSULOSIN 0.4 MG CAP.ER.24H PO STA (03:00)
--- NOTE | 2022-02-18 03:05 | ED ---
General Adult HPI - General Chief complaint: Abdominal Pain Stated complaint: Abd/back pain Time Seen by Provider: 02/17/22 23:54 Source: patient, family Mode of arrival: ambulatory Limitations: no limitations - History of Present Illness Initial comments: This is a 56-year-old female with a past medical history presents emergency department for right flank pain. The patient stated that this pain has been present over the last 3 days and was more severe to 3 days ago focused in the right flank and radiated to the groin however stated that she was able to go to work over the last 2 days without any significant pain but the pain did recur today and was present and more severe in the right flank. The patient stated that the radiation was also more severe into the right groin. The patient stated the pain was intermittent and stabbing in nature. The patient denied any previous kidney stones and denied any other acute pain or distress. The patient did report some mild nausea and vomiting associated with this pain. - Related Data Home Medications Medication Instructions Recorded Confirmed Cholecalciferol [Vitamin D3 (25 25 mcg PO DAILY 11/20/20 11/20/20 Mcg = 1000 Iu)] Immune Support Supplement 6 tab PO DAILY 11/20/20 11/20/20 Mv-Min/Folic/Vit K/Lut/Lduq546 2 tab PO DAILY 11/20/20 11/20/20 [Alive Women's 50 Plus Tablet] Mv-Min/Vit C/Glut/Lysine/Hc124 1 tablet PO DAILY 11/20/20 11/20/20 [Airborne Tablet Chewable] Omeprazole 20 mg PO DAILY 11/20/20 11/20/20 Previous Rx's Medication Instructions Recorded HYDROcodone/APAP 5-325MG [[place] 1 tab PO Q6HR PRN 3 Days #12 tab 02/18/22 5-325] Ketorolac [Toradol] 10 mg PO Q6HR #30 tab 02/18/22 Ondansetron Odt [Zofran Odt] 4 mg PO Q8HR PRN #20 tab 02/18/22 Tamsulosin [Flomax] 0.4 mg PO DAILY #30 cap 02/18/22 Allergies Allergy/AdvReac Type Severity Reaction Status Date / Time Sulfa (Sulfonamide Allergy Unknown Verified 11/20/20 10:51 Antibiotics) Review of Systems ROS Statement: Those systems with pertinent positive or pertinent negative responses have been documented in the HPI. ROS Other: All systems not noted in ROS Statement are negative. Past Medical History Past Medical History: GERD/Reflux History of Any Multi-Drug Resistant Organisms: None Reported Past Surgical History: Tonsillectomy Additional Past Surgical History / Comment(s): lasixs surgery on eye 2015 Past Anesthesia/Blood Transfusion Reactions: No Reported Reaction Past Psychological History: Anxiety Smoking Status: Never smoker Past Alcohol Use History: None Reported Past Drug Use History: None Reported - Past Family History Father Family Medical History: COPD, Diabetes Mellitus Mother Family Medical History: COPD Additional Family Medical History / Comment(s): pulmonary fibrosis General Exam Limitations: no limitations General appearance: alert, in no apparent distress Head exam: Present: atraumatic, normocephalic, normal inspection Eye exam: Present: normal appearance, PERRL Pupils: Present: normal accommodation ENT exam: Present: normal exam, normal oropharynx, mucous membranes moist Neck exam: Present: normal inspection, full ROM Respiratory exam: Present: normal lung sounds bilaterally Cardiovascular Exam: Present: regular rate, normal rhythm, normal heart sounds GI/Abdominal exam: Present: soft, normal bowel sounds Extremities exam: Present: normal inspection, full ROM Back exam: Present: normal inspection, full ROM Neurological exam: Present: alert, oriented X3, CN II-XII intact Psychiatric exam: Present: normal affect, normal mood Skin exam: Present: warm, dry Course Vital Signs 02/17/22 02/18/22 20:00 00:48 Temperature 97.8 F 98.7 F Pulse Rate 76 86 Respiratory 20 16 Rate Blood Pressure 125/71 122/72 O2 Sat by Pulse 100 96 Oximetry Medical Decision Making - Medical Decision Making Was pt. sent in by a medical professional or institution (, PA, RATE MANAGER, urgent care, hospital, or [facility]...) When possible be specific @ -No Did you speak to anyone other than the patient for history (EMS, parent, family, police, friend...)? What history was obtained from this source @ -No Did you review nursing and triage notes (agree or disagree)? Why? @ -I reviewed and agree with nursing and triage notes Were old charts reviewed (outside hosp., previous admission, EMS record, old EKG, old radiological studies, urgent care reports/EKG's, [facility] records)? Report findings @ -No old charts were reviewed Differential Diagnosis (chest pain, altered mental status, abdominal pain women, abdominal pain men, vaginal bleeding, weakness, fever, dyspnea, syncope, headache, dizziness, GI bleed, back pain, seizure, CVA, palpatations, mental health)? @ -UTI, pyelonephritis, kidney stone EKG interpreted by me (3pts min.). @ -None X-rays interpreted by me (1pt min.). @ -None done CT interpreted by me (1pt min.). @ -CT of the abdomen and pelvis without contrast was obtained and was interpreted by myself showing an obstructing 4 mm calculus in the lower right ureter with right-sided hydronephrosis and hydroureter with a normal appendix. U/S interpreted by me (1pt. min.). @ -A retroperitoneal ultrasound was ordered and obtained in triage and was interpreted by myself showing mild right hydronephrosis and mild lower pole hydronephrosis seen on previous study in 2019. What testing was considered but not performed or refused? (CT, X-rays, U/S, labs)? Why? @ -None What meds were considered but not given or refused? Why? @ -None Did you discuss the management of the patient with other professionals (professionals i.e. , PA, RATE MANAGER, lab, RT, psych nurse, social staff worker, crane engineer, teacher, human resource officer, transplant case manager)? Give summary @ -No Was smoking cessation discussed for >3mins.? @ -No Was critical care preformed (if so, how long)? @ -No Were there social determinants of health that impacted care today? How? (Homelessness, low income, unemployed, alcoholism, drug addiction, transportation, low edu. Level, literacy, decrease access to med. care, snf, rehab)? @ -No Was there de-escalation of care discussed even if they declined (Discuss DNR or withdrawal of care, Hospice)? DNR status @ -No What co-morbidities impacted this encounter? (DM, HTN, Smoking, COPD, CAD, Cancer, CVA, ARF, Chemo, Hep., AIDS, mental health diagnosis, sleep apnea, morbid obesity)? @ -None Was patient admitted / discharged? Hospital course, mention meds given and route, prescriptions, significant lab abnormalities, going to OR and other pertinent info. @ -The patient was seen and evaluated emergency department. Physical exam, the patient did have some minor right flank pain and was given medications. Workup did show a 4 mm obstructing stone in the right. The patient on reevaluation after medications had significant improvement of her pain was resting comfortably. The patient was able to tolerate by mouth successfully. The patient was able to be discharged home with medications and for surveillance at home. The patient was given a prescription for [place], Toradol and Zofran as well as Flomax. The patient was advised to continue to strain her urine and to follow-up with a urologist if needed however she could report back to the emergency department if her pain became severely worse while on medications. The patient was agreeable to this and her was present. The patient did receive an extra dose of Toradol prior to discharge as the patient was able to go to the pharmacy due to it being in the middle the night. The patient was agreeable to this and was discharged home in stable condition with her . Undiagnosed new problem with uncertain prognosis? @ -No Drug Therapy requiring intensive monitoring for toxicity (Heparin, Nitro, Insulin, Cardizem)? @ -No Were any procedures done? @ -No Diagnosis/symptom? @ -Right-sided 4 mm kidney stone Acute, or Chronic, or Acute on Chronic? @ -Acute Uncomplicated (without systemic symptoms) or Complicated (systemic symptoms)? @ -Uncomplicated Side effects of treatment? @ -No Exacerbation, Progression, or Severe Exacerbation? @ -No Poses a threat to life or bodily function? How? (Chest pain, [place], [place], pneumonia, PE, COPD, DKA, ARF, appy, cholecystitis, CVA, Diverticulitis, Homicidal, Suicidal, threat to staff... and all critical care pts) @ -No - Lab Data Result diagrams: 02/17/22 22:25 02/17/22 22:25 Lab Results 02/17/22 02/17/22 02/17/22 Range/Units 21:24 22:25 22:25 WBC 12.5 H (3.8-10.6) k/uL RBC 5.07 (3.80-5.40) m/uL Hgb 14.8 (11.4-16.0) gm/dL Hct 44.9 (34.0-46.0) % MCV 88.5 (80.0-100.0) fL MCH 29.2 (25.0-35.0) pg MCHC 33.0 (31.0-37.0) g/dL RDW 12.1 (11.5-15.5) % Plt Count 257 (150-450) k/uL MPV 7.3 Neutrophils % 86 % Lymphocytes % 10 % Monocytes % 3 % Eosinophils % 0 % Basophils % 0 % Neutrophils # 10.7 H (1.3-7.7) k/uL Lymphocytes # 1.2 (1.0-4.8) k/uL Monocytes # 0.4 (0-1.0) k/uL Eosinophils # 0.0 (0-0.7) k/uL Basophils # 0.0 (0-0.2) k/uL Sodium 138 (137-145) mmol/L Potassium 4.4 (3.5-5.1) mmol/L Chloride 106 (98-107) mmol/L Carbon Dioxide 25 (22-30) mmol/L Anion Gap 7 mmol/L BUN 23 H (7-17) mg/dL Creatinine 0.99 (0.52-1.04) mg/dL Est GFR (CKD-EPI)AfAm 73 (>60 ml/min/1.73 sqM) Est GFR (CKD-EPI)NonAf 63 (>60 ml/min/1.73 sqM) Glucose 112 H (74-99) mg/dL Calcium 9.6 (8.4-10.2) mg/dL Total Bilirubin 0.5 (0.2-1.3) mg/dL AST 26 (14-36) U/L ALT 21 (4-34) U/L Alkaline Phosphatase 96 (38-126) U/L Total Protein 7.5 (6.3-8.2) g/dL Albumin 4.6 (3.5-5.0) g/dL Amylase 94 (30-110) U/L Lipase 477 H (23-300) U/L Urine Color Yellow Urine Appearance Cloudy H (Clear) Urine pH 5.0 (5.0-8.0) Ur Specific [place] 1.025 (1.001-1.035) Urine Protein Trace H (Negative) Urine Glucose (UA) Negative (Negative) Urine Ketones Trace H (Negative) Urine Blood Large H (Negative) Urine Nitrite Negative (Negative) Urine Bilirubin Negative (Negative) Urine Urobilinogen <2.0 (<2.0) mg/dL Ur Leukocyte Esterase Trace H (Negative) Urine RBC >182 H (0-5) /hpf Urine WBC 5 (0-5) /hpf Ur Squamous Epith Cells 1 (0-4) /hpf Urine Bacteria Rare H (None) /hpf Urine Mucus Occasional H (None) /hpf Urine Yeast (Budding) Rare H (None) /hpf Disposition Clinical Impression: Kidney stone Disposition: HOME SELF-CARE Condition: Stable Instructions (If sedation given, give patient instructions): Kidney Stones (ED) Prescriptions: Tamsulosin [Flomax] 0.4 mg PO DAILY #30 cap HYDROcodone/APAP 5-325MG [[place] 5-325] 1 tab PO Q6HR PRN 3 Days #12 tab PRN Reason: Pain Ketorolac [Toradol] 10 mg PO Q6HR #30 tab Ondansetron Odt [Zofran Odt] 4 mg PO Q8HR PRN #20 tab PRN Reason: Nausea Is patient prescribed a controlled substance at d/c from ED?: Yes When asked, does pt state using other controlled substances?: No If prescribed controlled substance>3 days was MAPS reviewed?: Prescribed <3 Days If opioid is for acute pain is fill amount 7 days or less?: Yes If Rx opioid, was Start Talking consent form obtained?: Yes Referrals: Ream Avila MD [Primary Care Provider] - 1-2 days Time of Disposition: 03:00
[2022-02-18 03:18] VITALS: BP 105/79; PULSE 71; RESP 18
== END 2022-02-18 03:42 | disposition home or self-care (01) ==
LOC: EC 19:25
DX: N20.0 Calculus of kidney (principal); K21.9 Gastro-esophageal reflux disease without esophagitis; F41.9 Anxiety disorder, unspecified; Z88.2 Allergy status to sulfonamides; Z79.899 Other long term (current) drug therapy
CPT/HCPCS: 36415; 74176; 76770; 80053; 81001; 82150; 83690; 85025; 96361; 96374; 96375; 96376; 99284

== ENCOUNTER 2022-02-24 08:51 | Day surgery (SDC) | payer BC ==
--- NOTE | 2022-02-24 09:16 | XR ---
EXAMINATION TYPE: XR KUB DATE OF EXAM: 02/24/2022 Comparison: None Clinical History: 56-year-old female N20.1 right ureteral calculus Findings: Moderate stool burden. Right-sided pelvic phleboliths noted. 2 of the calcifications in the right sierra e of the pelvis may correspond to the recent ureteral calculi seen previously but migrated more dista lly now or possibly within the bladder. Nonobstructive bowel gas pattern. Impression: 4 calcifications in the right side of the pelvis. 2 of these may correspond to previously seen distal ureteral calculi that have migrated more distally or into the bladder.
[2022-02-24] MEDS ORDERED: LACTATED RINGERS 1,000 ML IV ONE ×2 (09:26→11:10)
[2022-02-24 09:32] VITALS: RESP 16
[2022-02-24] MEDS ORDERED: ONDANSETRON 4 MG/2 ML VIAL ONE (09:57)
[2022-02-24] MEDS ORDERED: DEXAMETHASONE SOD PHOSPHATE 4 MG/ML 1 ML VIAL IVP ONE (09:57)
[2022-02-24] MEDS ORDERED: ONDANSETRON 4 MG/2 ML VIAL IVP ONE (09:57)
--- NOTE | 2022-02-24 10:03 | P.GSHP ---
History of Present Illness H&P Date: 02/24/22 Chief Complaint: Right renal colic The patient is a 56-year-old white female with no prior history of urolithiasis. She recently has experienced right flank pain radiating to the right lower quadrant. CT scan performed on 02/18/2022 shows right hydroureteronephrosis due to a 4 mm right distal ureteral calculus. She was offered the options of medical expulsion therapy versus ureteroscopic removal of the calculus. She is afraid of another attack requiring a return to the ER, so she has elected to undergo ureteroscopic removal of the calculus. - Constitutional Constitutional: Denies chills, Denies fever - Gastrointestinal Gastrointestinal: Reports nausea, Reports vomiting - Genitourinary (Female) Genitourinary: Reports flank pain, Reports kidney stones, Denies hematuria Past Medical History Past Medical History: GERD/Reflux Additional Past Medical History / Comment(s): kidney stones History of Any Multi-Drug Resistant Organisms: None Reported Past Surgical History: Tonsillectomy Additional Past Surgical History / Comment(s): lasixs surgery on eye 2015 Past Anesthesia/Blood Transfusion Reactions: No Reported Reaction Smoking Status: Never smoker - Past Family History Father Family Medical History: COPD, Diabetes Mellitus Mother Family Medical History: COPD Additional Family Medical History / Comment(s): pulmonary fibrosis Medications and Allergies Home Medications Medication Instructions Recorded Confirmed Type Mv-Min/Folic/Vit K/Lut/Dmuq195 2 tab PO DAILY 11/20/20 02/24/22 History [Alive Women's 50 Plus Tablet] Mv-Min/Vit C/Glut/Lysine/Hc124 1 tablet PO DAILY 11/20/20 02/24/22 History [Airborne Tablet Chewable] Omeprazole 20 mg PO DAILY 11/20/20 02/24/22 History HYDROcodone/APAP 5-325MG [[place] 1 tab PO Q6HR PRN 3 Days #12 tab 02/18/22 02/24/22 Rx 5-325] Ketorolac [Toradol] 10 mg PO Q6HR #30 tab 02/18/22 02/24/22 Rx Ondansetron Odt [Zofran Odt] 4 mg PO Q8HR PRN #20 tab 02/18/22 02/24/22 Rx Tamsulosin [Flomax] 0.4 mg PO DAILY #30 cap 02/18/22 02/24/22 Rx Allergies Allergy/AdvReac Type Severity Reaction Status Date / Time Sulfa (Sulfonamide Allergy Nausea Verified 02/24/22 09:32 Antibiotics) Surgical - Exam - General well developed, well nourished, no distress - Neck no masses, trachea midline - Respiratory normal respiratory effort - Abdomen Abdomen: soft, non tender, no guarding, no rigid, no rebound - Psychiatric oriented to time, oriented to person, oriented to place, speech is normal, memory intact Results - Imaging CT scan - abdomen: report reviewed, image reviewed Assessment and Plan (1) Calculus of ureter Current Visit: Yes Status: Acute Code(s): N20.1 - CALCULUS OF URETER SNOMED Code(s): 91368813 Plan: Cystoscopy, right ureteroscopy with Holmium laser lithotripsy and possible stone basketing, possible right ureteral stent insertion. The procedure has been reviewed in detail with the patient, including risks which include anesthesia, bleeding, infection, inability to successfully remove the calculus, and ureteral injury.
[2022-02-24] MEDS ORDERED: LIDOCAINE 2% INJ 20 MG/ML (2 ML VIAL) ONE (10:19)
[2022-02-24] MEDS ORDERED: KETOROLAC 30 MG/ML 1 ML VIAL ONE (10:19)
[2022-02-24] MEDS ORDERED: MIDAZOLAM 2 MG/2 ML VIAL ONE (10:19)
[2022-02-24] MEDS ORDERED: fentaNYL (PF) 50 MCG/ML 2 ML AMP ONE (10:19)
[2022-02-24] MEDS ORDERED: PROPOFOL 10 MG/ML 20 ML VIAL IV ONE (10:19)
[2022-02-24] MEDS ORDERED: SUCCINYLCHOLINE CHLORIDE 200 MG/10 ML VIAL IV ONE (10:19)
[2022-02-24] MEDS ORDERED: IOPAMIDOL-370 50ML BTL IRRIGATION ONE (10:57)
[2022-02-24 11:30] VITALS: TEMP 97
--- NOTE | 2022-02-24 11:33 | P.OP ---
Date of Procedure: 02/24/22 Preoperative Diagnosis: Right ureteral calculus Postoperative Diagnosis: Same Procedure(s) Performed: Cystoscopy, right retrograde pyelogram, right ureteroscopy with Holmium laser lithotripsy and stone basketing, right ureteral stent insertion Anesthesia: MARILYNN Surgeon: Jose Kathleen Estimated Blood Loss (ml): 0 IV fluids (ml): 800 Pathology: other (Right distal ureteral calculus, sent for chemical analysis) Condition: stable Disposition: PACU Indications for Procedure: The patient is a 56-year-old white female with no prior history of urolithiasis. She recently has experienced right flank pain radiating to the right lower quadrant. CT scan performed on 02/18/2022 shows right hydroureteronephrosis due to a 4 mm right distal ureteral calculus. She was offered the options of medical expulsion therapy versus ureteroscopic removal of the calculus. She is afraid of another attack requiring a return to the ER, so she has elected to undergo ureteroscopic removal of the calculus. Operative Findings: 4 mm right distal ureteral calculus, impacted, removed completely. Description of Procedure: The patient was taken to the operating room and placed in the dorsolithotomy position, with legs supported in Ziyad stirrups. The external genitalia was prepped and draped sterilely. The 30 lens was used to introduce the 21-Polish Ortiz cystoscopic sheath through the urethra and into the bladder under direct vision. The bladder was examined in its entirety. Both ureteral orifices were normal anatomic location and configuration, and clear urine effluxed from both. No tumors or foreign bodies were seen. Using a 10-Polish cone-tipped catheter, a right retrograde pyelogram was performed. The calculus was seen 1-2 cm proximal to the ureterovesical junction. The ureter proximal to this was dilated. The Ortiz semirigid ureteroscope was advanced into the bladder, and the right ureteral orifice was cannulated. However, the ureteroscope could not be advanced more than 1 cm due to ureteral narrowing. The cystoscope was replaced into the bladder. A 0.035 inch Glidewire was passed through the cystoscope. The right ureteral orifice was cannulated, and the Glidewire was advanced up to the right renal pelvis. A 12-Polish, 4 cm balloon dilating catheter was then passed through the cystoscope and used to dilate the intramural portion of the ureter. Once this was completed, the cystoscope was removed and ureteroscopy was repeated. The calculus was readily seen. The 272 micron Holmium laser probe was passed through the ureteroscope, and lithotripsy was performed. After fragmenting the calculus, a 1.9-Polish nitinol basket was used to remove the calculus fragments. The ureter was then inspected. There was no evidence of ureteral trauma. Mild edema at the site of stone impaction was noted. The ureter proximal to the site of impaction was dilated. There were no residual stone fragments. The Glidewire was passed through the ureteroscope, which was removed. The Glidewire was backloaded into the cystoscope, which was passed into the bladder. A 24 cm, 4.8-Polish double-J ureteral stent was placed over the wire. Proper stent positioning was verified fluoroscopically and endoscopically. The bladder was emptied and the cystoscope removed. The patient tolerated the procedure well and was taken to the recovery room in stable condition. [facility] [place] Report: Procedure Acuity: Urgent Stone Size and Location: 4 mm, right distal ureter Ureteral Dilation: Balloon Dilation Ureteral Access Sheath Used: No Stone Sent for Analysis: Yes All Stones/Fragments Were Removed with a Basket: Yes Complications: No Preoperative Antibiotics Given: Yes Stent Placed: Yes If Stent Placed, Was String Left Attached: No If Stent Placed, When is it to be Removed: 1 week Discharge Medications: Tamsulosin, Toradol
--- NOTE | 2022-02-24 11:46 | FL ---
EXAMINATION TYPE: FL urography retrograde DATE OF EXAM: 02/24/2022 CLINICAL HISTORY: Right ureter stone. TECHNIQUE: Fluoroscopy. COMPARISON: Same day Abdominal x-ray. FINDINGS: Fluoroscopic guidance was provided during right ureter stone treatment procedure performed by Dr. Kathleen. A total of 7 seconds of fluoroscopic time was utilized during the procedure and 3 sp ot images are acquired. Images acquired show access at right UVJ with subsequent advancement of guide wire and then ureter stent. IMPRESSION: As Above.
[2022-02-24 12:58] VITALS: BP 119/82; PULSE 67
== END 2022-02-24 13:08 | disposition home or self-care (01) ==
LOC: OR 08:51
PROVIDERS: ATTEND Urology
DX: N20.1 Calculus of ureter (principal); K21.9 Gastro-esophageal reflux disease without esophagitis; F41.9 Anxiety disorder, unspecified; Z87.442 Personal history of urinary calculi; Z90.89 Acquired absence of other organs; Z83.3 Family history of diabetes mellitus; Z83.6 Family history of other diseases of the respiratory system; Z79.1 Long term (current) use of non-steroidal anti-inflammatories (NSAID); Z79.899 Other long term (current) drug therapy; Z88.2 Allergy status to sulfonamides
CPT/HCPCS: 82365; 74420; 74018; 52356; C2625; C1758; C1769; J2250; J0330; J1100; J0690; J2405; J3010; J1885; J2704; Q9967; J2001

== ENCOUNTER → 2023-03-01 | Outpatient (CLI) | payer BC ==
--- NOTE | 2023-03-03 12:54 | MM ---
Reason for Exam: Screening (asymptomatic). Last mammogram was performed 1 year(s) and 1 month(s) ago. Patient History: Menarche at age 11. First Full-Term at age 24. Postmenopausal. Patient has history of breast feeding. 12/09/2014, Benign Core Biopsy on the left side. Risk Values: Keyla 5 year model risk: 1.8%. NCI Lifetime model risk: 9.8%. Prior Study Comparison: 10/02/2020 Bilateral Screening Mammogram, [facility]. 10/09/2020 Left Diagnostic Mammogram, [facility]. 02/10/2022 Bilateral MG screening mammo w CAD, [facility]. Tissue Density: There are scattered fibroglandular densities. Findings: Analyzed By CAD. There is no suspicious group of microcalcifications or new suspicious mass in either breast. Stable chronic nodularity. Surgical clip within the left breast. Benign calcifications noted. Chronic nodularity right breast stable. Lymph nodes in the axilla are stable. On the MLO view posteriorly and there is areas of increased density. Recommend bilateral spot compression view and true lateral view. Overall Assessment: Incomplete: need additional imaging evaluation, BI-RAD 0 Management: Special View Mammogram of both breasts. . Patient should continue monthly self-breast exams. A clinical breast exam by your physician is recommended on an annual basis. This exam should not preclude additional follow-up of suspicious palpable abnormalities. Note on Keyla scores and lifetime risk: 1. A Keyla score greater than 3% is considered moderate risk. If this is the case, consider specialist referral to assess eligibility for a risk reducing agent. 2. If overall lifetime risk for the development of breast cancer is 20% or higher, the patient may qualify for future screening with alternating mammogram and breast MRI. Electronically signed and approved by: Janes Hale M.D. Radiologis
== END | disposition home or self-care (01) ==
LOC: RADMAMWWP 13:20
PROVIDERS: ATTEND Internal Medicine
DX: Z12.31 Encounter for screening mammogram for malignant neoplasm of breast (principal); Z78.0 Asymptomatic menopausal state
CPT/HCPCS: 77067

== ENCOUNTER → 2023-03-10 | Outpatient (CLI) | payer BC ==
--- NOTE | 2023-03-10 15:15 | MM ---
Reason for Exam: Additional evaluation requested from prior study. Last screening mammogram was performed less than 1 month ago. Patient History: Menarche at age 11. First Full-Term at age 24. Postmenopausal. Patient has history of breast feeding. 12/09/2014, Benign Core Biopsy on the left side. Risk Values: Keyla 5 year model risk: 1.8%. NCI Lifetime model risk: 9.8%. Prior Study Comparison: 10/09/2020 Left Diagnostic Mammogram, [facility]. 02/10/2022 Bilateral MG screening mammo w CAD, [facility]. 03/01/2023 Bilateral MG screening mammo w CAD, [facility]. Tissue Density: There are scattered fibroglandular densities. Findings: Analyzed By CAD. Unchanged areas of bilateral asymmetric density. Microclip left breast prior biopsy. The questioned asymmetric density projecting at the inferior aspect of the pectoralis shadow on either side does not persist on additional views. On the right, some of this density corresponds to superimposed tortuous vessel. No persisting abnormality is seen. Overall Assessment: Benign, BI-RAD 2 Management: Screening Mammogram of both breasts in 1 year. . Results were given to the patient verbally at the time of exam. Patient should continue monthly self-breast exams. A clinical breast exam by your physician is recommended on an annual basis. This exam should not preclude additional follow-up of suspicious palpable abnormalities. Note on Keyla scores and lifetime risk: 1. A Keyla score greater than 3% is considered moderate risk. If this is the case, consider specialist referral to assess eligibility for a risk reducing agent. 2. If overall lifetime risk for the development of breast cancer is 20% or higher, the patient may qualify for future screening with alternating mammogram and breast MRI. Electronically signed and approved by: Janett Wheeler M.D. Radiologist [facility]
== END | disposition home or self-care (01) ==
LOC: RADMAMWWP 13:19
PROVIDERS: ATTEND Internal Medicine
DX: R92.323 Mammographic fibroglandular density, bilateral breasts (principal); Z78.0 Asymptomatic menopausal state
CPT/HCPCS: 77062; 77066